=== PATIENT | female | born 1965 | race Caucasian/White ===

== ENCOUNTER → 2018-11-17 13:14 | Outpatient (CLI) | payer OTHER, SELFPAY ==
--- NOTE | 2018-11-17 13:17 | BI_ITS ---
MAMMOGRAPHY - BILATERAL SCREENING REASON FOR EXAM: Female, 53 years old. Routine annual screening examination. PERTINENT HISTORY: FAM HX -2 MAT AUNTS AGES 64 AND 70S, 1 PT AUNT AGE 70S NO SX TECHNIQUE: Digital bilateral breast jennie (3D mammographic acquisition) in the CC and MLO projections. 2-D mediolateral oblique (MLO) and craniocaudad (CC) views of both breasts were obtained. CAD: Full Field Digital Mammography with Computer Added Detection was performed. COMPARISON: None. FINDINGS: Breast Composition: There are scattered areas of fibroglandular density. There are no dominant masses or suspicious calcifications. No other significant abnormalities are identified. BI/SCREENING MAMM (CAD), BILAT IMPRESSION: Stable bilateral screening mammogram. Yearly follow-up mammogram recommended. (A) ASSESSMENT CATEGORY: BIRADS Category 2: Benign. A letter regarding these results will be sent to the patient by the facility within 30 days. Approximately 10% of breast cancers are not detected by mammography. A normal mammogram should not delay biopsy of a clinically suspicious abnormality. [id number] Electronically Signed: Khang Gray, at 13:18 EDT Tel , Service support ,
== END ==
PROVIDERS: Family Provider Family Medicine; PCP Family Medicine; Visit Provider Obstetrics & Gynecology
DX: Z12.31 Encounter for screening mammogram for malignant neoplasm of breast (principal)
CPT/HCPCS: 77063; 77067

== ENCOUNTER → 2019-11-04 16:02 | Outpatient (CLI) | payer OTHER, SELFPAY ==
[2019-02-01 08:52] VITALS: BMI 28.3
[2019-11-04 17:57] LABS: Hematocrit 43.7 % (37-47); Hemoglobin 14.5 g/dL (12.0-15.0); Mean Corp Hgb Conc 33.2 g/dL (32-36); Mean Corpuscular Hgb 29.1 pg (27.0-32.0); Mean Corpuscular Volume 87.6 fL (81-99); Mean Platelet Vol. 9.4 fl (6.2-12.0); Platelet Count 330 K/mm3 (150-450); RBC Distribution Width CV 11.9 % (11.6-14.6); RBC Distribution Width SD 38.2 fl (35.1-43.9); Red Blood Count 4.99 M/mm3 (4.2-5.4); White Blood Count 8.3 K/mm3 (4.4-11.0)
[2019-11-04 18:11] LABS: ALB/GLOB Ratio 0.9 RATIO (0.9-2.4); AST(SGOT) 19 U/L (15-37); Alanine Aminotransfer ALT/SGPT 32 U/L (13-56); Albumin, Serum 3.6 g/dL (3.2-5.0); Alkaline Phosphatase 77 U/L (45-117); Anion Gap 5 (5-15); BUN 14 mg/dL (7-18); Calcium,Total 9.1 mg/dL (8.5-10.1); Chloride 104 mmol/L (98-107); Creatinine, Serum 0.82 mg/dL (0.55-1.02); EST Glomerular Filtration Rate 77 mL/min (>60); Est Glom Filt Rate - Afr Amer 93 mL/min (>60); Globulin 4.1 g/dL (2.2-4.2); Glucose 94 mg/dL (74-106); Potassium 3.4 mmol/L (3.5-5.1); Protein, Total 7.7 g/dL (6.4-8.2); Sodium Level 139 mmol/L (136-145)
== END ==
PROVIDERS: PCP Family Medicine; Referring Provider Nurse Practitioner Family; Visit Provider Nurse Practitioner Family
DX: R10.9 Unspecified abdominal pain (principal)
CPT/HCPCS: 36415; 80053; 85027

== ENCOUNTER → 2019-12-03 06:26 | Outpatient (CLI) | payer OTHER, SELFPAY ==
[2019-11-12 13:42] VITALS: BMI 28.3
[2019-12-03 08:08] LABS: Anion Gap 8 (5-15); BUN 15 mg/dL (7-18); Calcium,Total 8.4 mg/dL (8.5-10.1); Chloride 100 mmol/L (98-107); Creatinine, Serum 0.83 mg/dL (0.55-1.02); EST Glomerular Filtration Rate 76 mL/min (>60); Est Glom Filt Rate - Afr Amer 92 mL/min (>60); Glucose 124 mg/dL (74-106); Potassium 3.2 mmol/L (3.5-5.1); Sodium Level 137 mmol/L (136-145)
== END ==
PROVIDERS: PCP Family Medicine; Referring Provider Family Medicine; Visit Provider Family Medicine
DX: E87.6 Hypokalemia (principal)
CPT/HCPCS: 36415; 80048

== ENCOUNTER 2020-01-26 06:28 | Day surgery (SDC) | payer OTHER, SELFPAY ==
[2019-11-12 13:42] VITALS: BMI 28.3
[2020-01-26 06:54] VITALS: BP 125/62; PULSE 70; RESP 16; TEMP 37; O2SAT 97; BMI 30.9
[2020-01-26] MEDS: Lactated Ringers 1,000 ML 100 ML IV (07:05)
--- NOTE | 2020-01-26 07:33 | HP.PCM_ITS ---
History and Physical Date of Admission: 01/26/20 [facility] 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[employer] Required: No Is patient in pain?: No Allergies No Known Allergies Allergy (Verified 11/12/19 13:41) Medications amlodipine 10 mg tablet 10 mg PO DAILY 11/12/19 [History Confirmed 11/12/19] hydrochlorothiazide 25 mg tablet 25 mg PO DAILY 11/12/19 [History Confirmed 11/12/19] metoprolol tartrate 50 mg tablet 50 mg PO DAILY 11/12/19 [History Confirmed 11/12/19] [facility], [facility] Medical History HTN (hypertension) (Chronic) Radiculopathy of lumbosacral region (Acute) Segmental and somatic dysfunction of pelvic region (Acute) Segmental and somatic dysfunction of lumbar region (Acute) Segmental and somatic dysfunction of thoracic region (Acute) Segmental and somatic dysfunction of cervical region (Acute) Surgical History S/P D&C (status post dilation and curettage) (Acute) S/P hysterectomy (Acute) Family History Father Hypertension CAD (coronary artery disease) CVA (cerebral vascular accident) Sister Hypertension Mother Hypertension Social History (Updated 11/20/19 @ 13:[address] Donte Hayes MD) Smoking Status: Never smoker alcohol intake: never HPI HPI HPI: JUNE ZUÑIGA, is a 54 F who presents to the office today for HPI HPI Surgical H&P: Yes HPI: JUNE ZUÑIGA, is a 54 F who presents to the office today for Presents for screening colonoscopy. Patient has never had a colonoscopy she has no family history of colon related issues. She did states she had about a 3-week history of some constipation and little change in her bowel habits but that resolved on its own. She has not noticed any blood in her stools Exam Const General: no acute distress, well developed, well hydrated Orientation: oriented to person, oriented to place, oriented to time [place] Head: normocephalic, atraumatic Ears: external ears normal Mouth: moist mucous membranes Eyes Sclera: sclerae normal Pupils: normal by confrontation Neck Neck: no lymphadenopathy noted Neck mass: No Thyroid: thyroid normal, symmetrical Chest Chest palpation & inspection: normal inspection of the chest Resp Effort & Inspection: normal respiratory effort Auscultation: clear to auscultation bilaterally Percussion: percussion normal Cardio Rate: regular rate Rhythm: regular rhythm GI Palpation: soft, no hepatosplenomegaly, no masses, nontender Rectal Exam: other Other: Rectal exam deferred. Extrem General: normal to inspection, no clubbing, cyanosis or edema Assessment & Plan Problems 1. Encounter for screening colonoscopy Z08.11 Plan I have discussed the above with the patient. I have offered the patient colonoscopy for evaluation. I have explained the risks/benefits of the procedure and described the procedure. I have discussed the risks with the patient, including but not limited to: infection, bleeding, perforation of the GI tract requiring emergency surgery, inability to complete the procedure, injury to any internal organs, complications of anesthesia, etc. - the patient understands and agrees to proceed. I have answered all the patient's questions to the patient's satisfaction and the patient has no further questions. The patient has been given instructions for the colon cleansing preparation. Orders Orders: Colonoscopy 11/12/19 Plan Detail Goals Decrease pain and improve ROM Decrease radiculopathy Barriers Lumbar compression fx-healed Transitional vertebra Coding Level of Care Code Off vis,new,level 3 Diagnoses Encounter for screening colonoscopy Z08.11 <Electronically signed by Donte Hayes MD> Date _ Donte De Santiago Signature: Date (if applicable) CC: [employer] SUPERVISOR-Everardo [place]; Mateo Multani MD ~ I have re-examined the patient. There are no clinical changes since date of exam.
--- NOTE | 2020-01-26 07:53 | OP.COLON_ITS ---
Patient Name: Diana Fernández Procedure Date: 01/26/2020 7:14 AM Date of : 1965 Age: 54 Procedure: Colonoscopy Indications: Screening for colorectal malignant neoplasm Providers: Donte Hayes MD Referring MD: Donte Hayes MD Medicines: See the Anesthesia note for documentation of the administered medications Patient Profile: This is a 54 year old female. Refer to note in patient chart for documentation of history and physical. Last Colonoscopy: none. The patient's first colonoscopy is today. Complications: No immediate complications. Procedure: Pre-Anesthesia Assessment: - Prior to the procedure, a History and Physical was performed, and patient medications and allergies were reviewed. The patient's tolerance of previous anesthesia was also reviewed. The risks and benefits of the procedure and the sedation options and risks were discussed with the patient. All questions were answered, and informed consent was obtained. Prior Anticoagulants: The patient has taken no previous anticoagulant or antiplatelet agents. ASA Grade Assessment: II - A patient with mild systemic disease. After reviewing the risks and benefits, the patient was deemed in satisfactory condition to undergo the procedure. After I obtained informed consent, the scope was passed under direct vision. Throughout the procedure, the patient's blood pressure, pulse, and oxygen saturations were monitored continuously. The adult colonoscope was introduced through the anus and advanced to the cecum, identified by appendiceal orifice and ileocecal valve. The colonoscopy was performed without difficulty. The patient tolerated the procedure well. The quality of the bowel preparation was good. Scope In: 7:40:13 AM Scope Withdrawal Time 0 hours 6 minutes 45 seconds Scope Out: 7:49:15 AM Total Procedure Duration Time 0 hours 9 minutes 2 seconds Findings: A few small-mouthed diverticula were found in the sigmoid colon. Non-bleeding internal hemorrhoids were found during retroflexion. The hemorrhoids were mild and small. The exam was otherwise without abnormality. Impression: - Diverticulosis in the sigmoid colon. - Non-bleeding internal hemorrhoids. - The examination was otherwise normal. - No specimens collected. Recommendation: - Discharge patient to home. - Resume previous diet. - Continue present medications. - Repeat colonoscopy in 10 years for screening purposes. - Return to primary care physician (date not yet determined). Procedure Code(s): --- Professional --- 49439, Colonoscopy, flexible; diagnostic, including collection of specimen(s) by brushing or washing, when performed (separate procedure) Diagnosis Code(s): --- Professional --- Z12.11, Encounter for screening for malignant neoplasm of colon K64.8, Other hemorrhoids K57.30, Diverticulosis of large intestine without perforation or abscess without bleeding CPT copyright 2017 [employer]. All rights reserved. The codes documented in this report are preliminary and upon comedian review may be revised to meet current compliance requirements. MD Donte Cummings MD 01/26/2020 7:52:37 AM This report has been signed electronically. Number of Addenda: 0 Note Initiated On: 01/26/2020 7:14 AM
--- NOTE | 2020-01-26 07:53 | OP.CCLET_ITS ---
01/26/2020 Mateo De La Cruz Md Re : Colonoscopy procedure for Diana Fernández Dear Dorothy This procedure was performed on Sunday, January 26, 2020. My impressions and recommendations are as follows: Impressions : - Diverticulosis in the sigmoid colon. - Non-bleeding internal hemorrhoids. - The examination was otherwise normal. - No specimens collected. Recommendations : - Discharge patient to home. - Resume previous diet. - Continue present medications. - Repeat colonoscopy in 10 years for screening purposes. - Return to primary care physician (date not yet determined). My findings are described in the full procedure note, which is enclosed. If I can be of further assistance, please feel free to contact me at Doctor phone number(s): , Fax: [phone], Work: . Sincerely, MD Donte Cummings MD 01/26/2020 7:52:37 AM This report has been signed electronically.
[2020-01-26 07:54] VITALS: BP 102/58; BP 125/62; PULSE 67; RESP 14; TEMP 36.4; O2SAT 100
[2020-01-26 07:55] VITALS: BP 109/63; BP 125/62; PULSE 68; RESP 16; O2SAT 99
[2020-01-26 08:00] VITALS: BP 125/62; BP 132/92; PULSE 72; RESP 16; O2SAT 96
[2020-01-26 08:05] VITALS: BP 110/57; BP 125/62; PULSE 72; RESP 16; TEMP 36.2; O2SAT 97
[2020-01-26 08:45] VITALS: BP 125/62
== END 2020-01-26 08:45 | disposition home or self-care (01) ==
LOC: EN 06:29 → AC 06:30
PROVIDERS: PCP Family Medicine; Referring Provider Surgery; Visit Provider Surgery
PROC: 0DJD8ZZ Inspection of Lower Intestinal Tract, Via Natural or Artificial Opening Endoscopic (ICD-10-PCS; CPT 45378; principal; 2020-01-26 07:25)
DX: Z12.11 Encounter for screening for malignant neoplasm of colon (principal); I10 Essential (primary) hypertension; K64.8 Other hemorrhoids; K57.30 Diverticulosis of large intestine without perforation or abscess without bleeding; Z11.59 Encounter for screening for other viral diseases
CPT/HCPCS: 45378; 87635; G2023; J7120; J1610; U0004

== ENCOUNTER → 2021-02-23 07:36 | Outpatient (CLI) | payer OTHER, SELFPAY ==
--- NOTE | 2021-02-23 07:39 | BI_ITS ---
MAMMOGRAPHY - BILATERAL SCREENING 3-D TOMOSYNTHESIS REASON FOR EXAM: Female, 55 years old. SCREENING PERTINENT HISTORY: No significant family history. TECHNIQUE: 2-D mammograms and 3-D Tomosynthesis of the breast (s) were performed. CAD was performed. COMPARISON: 11/17/2018 FINDINGS: The breast composition is of scattered fibroglandular tissue No dense spiculated masses or suspicious microcalcifications are identified. No architectural distortion is identified. There is no skin thickening or nipple retraction. Benign appearing lymph nodes noted in the axillary areas. There has been no significant change since the prior study of 11/17/2018. BI/SCRN MAMM (CAD)W/HOOD BILAT IMPRESSION: No mammographic signs of malignancy. Routine yearly mammograms recommended. ASSESSMENT CATEGORY: BIRADS Category 1: Negative. A letter regarding these results will be sent to the patient by the facility within 30 days. FOLLOW UP RECOMMENDATION: Yearly follow up mammogram recommended. (A) Approximately 10% of breast cancers are not detected by mammography. A normal mammogram should not delay biopsy of a clinically suspicious abnormality. Electronically Signed: Terrie Bryant, at 14:01 EDT Tel , Service support ,
== END ==
PROVIDERS: PCP Family Medicine; Referring Provider Family Medicine; Visit Provider Family Medicine
DX: Z12.31 Encounter for screening mammogram for malignant neoplasm of breast (principal)
CPT/HCPCS: 77063; 77067

== ENCOUNTER → 2022-04-12 | Outpatient (CLI) | payer OTHER, SELFPAY ==
--- NOTE | 2022-04-12 07:15 | BI_ITS ---
MAMMOGRAPHY - BILATERAL SCREENING REASON FOR EXAM: Female, 57 years old. Routine annual screening examination. PERTINENT HISTORY: 3 aunts with breast cancer. TECHNIQUE: Digital bilateral breast hood (3D mammographic acquisition) in the CC and MLO projections. 2-D mediolateral oblique (MLO) and craniocaudad (CC) views of both breasts were obtained. CAD: Full Field Digital Mammography with Computer Added Detection was performed. COMPARISON: Screening mammogram from 02/23/2021, 11/17/2018, 04/21/2017. FINDINGS: Breast Composition: The breasts are heterogeneously dense, which may obscure small masses. There are no dominant masses or suspicious calcifications. No other significant abnormalities are identified. There has been no significant change since the prior study. BI/SCRN MAMM (CAD)W/HOOD BILAT IMPRESSION: Stable bilateral screening mammogram. Yearly follow-up mammogram recommended. (A) ASSESSMENT CATEGORY: BIRADS Category 1: Negative. A letter regarding these results will be sent to the patient by the facility within 30 days. Approximately 10% of breast cancers are not detected by mammography. A normal mammogram should not delay biopsy of a clinically suspicious abnormality. Electronically Signed: Zafar Saba, at 9:40 EDT ,
== END | disposition home or self-care (01) ==
LOC: OPBI 07:14
PROVIDERS: PCP Family Medicine; Referring Provider Family Medicine; Visit Provider Family Medicine
DX: Z12.31 Encounter for screening mammogram for malignant neoplasm of breast (principal)
CPT/HCPCS: 77063; 77067

== ENCOUNTER → 2022-06-13 | Outpatient (CLI) | payer OTHER, SELFPAY ==
[2022-06-13 08:25] LABS: Thyroid Stim Hormone (TSH) 5.79 uIU/mL (0.358-3.74)
== END | disposition home or self-care (01) ==
PROVIDERS: PCP Family Medicine; Referring Provider Family Medicine; Visit Provider Family Medicine
DX: R23.2 Flushing (principal)
CPT/HCPCS: 36415; 84443

== ENCOUNTER → 2022-06-21 | Outpatient (CLI) | payer OTHER, SELFPAY ==
[2022-06-21 18:46] LABS: Free T3 3.3 pg/mL (2.18-3.98); T4 Free Direct 1.21 ng/dL (0.76-1.46); Uric Acid 5.9 mg/dL (2.6-6.0)
[2022-06-29 09:47] LABS: Estrogen, Total, Serum 66 pg/mL (40-244)
== END | disposition home or self-care (01) ==
LOC: MFPLAB 16:13
PROVIDERS: PCP Family Medicine; Referring Provider Family Medicine; Visit Provider Family Medicine
DX: M10.9 Gout, unspecified (principal); R23.2 Flushing; E03.9 Hypothyroidism, unspecified
CPT/HCPCS: 36415; 82672; 84439; 84443; 84481; 84550

== ENCOUNTER → 2023-02-07 | Outpatient (CLI) | payer OTHER, SELFPAY ==
--- NOTE | 2023-02-07 09:28 | RAD_ITS ---
INDICATION: THUMB PAIN EXAMINATION/TECHNIQUE: X-RAY - RIGHT XR Hand Min 3 Views 3 VIEWS COMPARISON: FINDINGS: BONES: No fracture demonstrated. Mild degenerative changes at the first carpometacarpal joint. JOINTS: No dislocation. SOFT TISSUES: Unremarkable. RAD/Hand Min 3 Views IMPRESSION: Degenerative changes at the first carpometacarpal joint. No evidence of fracture. Electronically Signed: Renetta Andrews MD at 7:17 EDT ,
--- NOTE | 2023-02-07 09:28 | RAD_ITS ---
INDICATION: THUMB PAIN EXAMINATION/TECHNIQUE: X-RAY - LEFT XR Hand Min 3 Views 3 VIEWS COMPARISON: FINDINGS: BONES: No fracture demonstrated. Mild degenerative changes at the first carpometacarpal joint. JOINTS: No dislocation. SOFT TISSUES: Unremarkable. RAD/Hand Min 3 Views IMPRESSION: Degenerative changes at the first metacarpophalangeal joint. No evidence of fracture. Electronically Signed: Renetta Andrews MD at 7:16 EDT ,
[2023-02-07 11:38] LABS: Hemoglobin A1c 5.3 % (3.8-5.6)
[2023-02-07 11:49] LABS: Free T3 2.8 pg/mL (2.18-3.98); Thyroid Stim Hormone (TSH) 2.05 uIU/mL (0.358-3.74)
== END | disposition home or self-care (01) ==
PROVIDERS: PCP Family Medicine; Referring Provider Family Medicine; Visit Provider Family Medicine
DX: E03.9 Hypothyroidism, unspecified (principal); R73.9 Hyperglycemia, unspecified; M79.645 Pain in left finger(s); M79.644 Pain in right finger(s)
CPT/HCPCS: 36415; 73130; 83036; 84443; 84481

== ENCOUNTER → 2023-05-07 | Outpatient (CLI) | payer OTHER, SELFPAY ==
--- NOTE | 2023-05-07 12:56 | BI_ITS ---
MAMMOGRAPHY - BILATERAL SCREENING REASON FOR EXAM: Female, 58 years old. Routine annual screening examination. PERTINENT HISTORY: Aunts with breast cancer. TECHNIQUE: Digital bilateral breast hood (3D mammographic acquisition) in the CC and MLO projections. 2-D mediolateral oblique (MLO) and craniocaudad (CC) views of both breasts were obtained. CAD: Full Field Digital Mammography with Computer Added Detection was performed. COMPARISON: Comparison is made with prior study April 12, 2022 and February 23, 2021. FINDINGS: Breast Composition: There are scattered areas of fibroglandular density. There are no dominant masses or suspicious calcifications. Stable small benign-appearing bilateral axillary lymph nodes. No other significant abnormalities are identified. There has been no significant change since the prior study. BI/SCRN MAMM (CAD)W/HOOD BILAT IMPRESSION: Stable bilateral screening mammogram. Yearly follow-up mammogram recommended. (A) ASSESSMENT CATEGORY: BIRADS Category 2: Benign. A letter regarding these results will be sent to the patient by the facility within 30 days. Approximately 10% of breast cancers are not detected by mammography. A normal mammogram should not delay biopsy of a clinically suspicious abnormality. [id number] Electronically Signed: Augie Kraus MD at 13:55 EDT ,
== END | disposition home or self-care (01) ==
LOC: OPBI 12:55
PROVIDERS: PCP Family Medicine; Referring Provider Family Medicine; Visit Provider Family Medicine
DX: Z12.31 Encounter for screening mammogram for malignant neoplasm of breast (principal); Z80.3 Family history of malignant neoplasm of breast
CPT/HCPCS: 77063; 77067

== ENCOUNTER → 2024-06-17 | Outpatient (CLI) | payer OTHER, SELFPAY ==
--- NOTE | 2024-06-17 07:47 | BI_ITS ---
MAMMOGRAPHY - BILATERAL SCREENING 3-D TOMOSYNTHESIS REASON FOR EXAM: Female, 59 years old. screening PERTINENT HISTORY: No significant family history. TECHNIQUE: 2-D mammograms and 3-D Tomosynthesis of the breast (s) were performed. CAD was performed. COMPARISON: 05/07/2023 FINDINGS: The breast composition is composed of scattered fibroglandular density. Scattered benign calcifications are seen. No dense spiculated masses or suspicious microcalcifications are identified. No architectural distortion is identified. There is no skin thickening or retraction. There has been no significant change since the prior study. BI/SCRN MAMM (CAD)W/HOOD BILAT IMPRESSION: No mammographic signs of malignancy. Routine yearly mammograms recommended. ASSESSMENT CATEGORY: BIRADS Category 1: Negative. A letter regarding these results will be sent to the patient by the facility within 30 days. FOLLOW UP RECOMMENDATION: Yearly follow up mammogram recommended. (A) Approximately 10% of breast cancers are not detected by mammography. A normal mammogram should not delay biopsy of a clinically suspicious abnormality. Electronically Signed: Keagan Churchill MD at 13:56 EDT ,
== END | disposition home or self-care (01) ==
LOC: OPBI 07:46
PROVIDERS: PCP Family Medicine; Referring Provider Family Medicine; Visit Provider Family Medicine
DX: Z12.31 Encounter for screening mammogram for malignant neoplasm of breast (principal)
CPT/HCPCS: 77063; 77067

== ENCOUNTER 2025-01-01 07:38 | Emergency (ER) | payer OTHER, SELFPAY ==
[2025-01-01 07:39] VITALS: BP 154/79; PULSE 63; RESP 19; TEMP 36.8; O2SAT 99; BMI 34.5
--- NOTE | 2025-01-01 07:48 | US_ITS ---
PROCEDURE: GALLBLADDER 01/01/2025 REASON FOR EXAM: Right upper quadrant abdominal pain. COMPARISON: None. FINDINGS: Liver: Normal in size, diffusely echogenic suggesting fatty infiltration. The bile ducts are within normal limits. There is normal directional flow within the main portal vein. Gallbladder: Several tiny gallstones within the nondilated gallbladder. No pericholecystic fluid or gallbladder wall thickening. Negative Rodriguez sign reported by processing technologist. Common bile duct: Normal measuring 0.3 cm. Pancreas: Visualized portions are sonographically unremarkable. Other: Visualized portions of the right kidney are unremarkable. No right upper quadrant ascites. US/Gallbladder IMPRESSION: Cholelithiasis without evidence of acute cholecystitis. Reading Location: [id number]
--- NOTE | 2025-01-01 07:48 | ED.VIS.GI ---
HPI HPI - GI History of Present Illness Chief Complaint: Abd Pain Narrative Narrative: 59-year-old female past medical history of hypertension presents with her because of right upper quadrant abdominal pain, nausea, and vomiting that she has had since about 1230 this morning, approximately 7 hours ago. Past abdominal surgery does include laparoscopic-assisted vaginal hysterectomy. She states that she feels like she has had gallbladder attacks a few times over the last 2-1/2 years, the last being a year or so ago. Yesterday evening around 830 she had ice cream. She never went to sleep but around 1230 this morning, started having right upper quadrant abdominal pain associated with nausea. She vomited once and feels improved slightly. She denies any problems with bowel movements, no diarrhea, no overt fevers or rigors. No exacerbating or alleviating factors. She states she is never had a gallbladder workup in the past. Hence, she is unsure if she has gallstones or sludge in her gallbladder. [facility] Medical History (Updated 01/01/25 @ 09:03 by Ryne Girard MD) HTN (hypertension) Radiculopathy of lumbosacral region Segmental and somatic dysfunction of pelvic region Segmental and somatic dysfunction of lumbar region Segmental and somatic dysfunction of thoracic region Segmental and somatic dysfunction of cervical region Home Medications ?Medication ?Instructions ?Recorded ?Last Taken ?Type hydrochlorothiazide 25 mg tablet 25 mg PO DAILY htn 11/12/19 01/25/20 16:00 History metoprolol tartrate 50 mg tablet 50 mg PO DAILY htn 11/12/19 01/25/20 16:00 History atenolol 25 mg tablet 25 mg PO DAILY 04/24/23 Unknown History pollens extract 160 mg tablet mg PO 04/24/23 Unknown History (Relizen) Allergy/AdvReac Type Severity Reaction Status Date / Time No Known Allergies Allergy Verified 01/01/25 07:39 Family History Father Hypertension CAD (coronary artery disease) CVA (cerebral vascular accident) Sister Hypertension Mother Hypertension Surgical History S/P hysterectomy S/P D&C (status post dilation and curettage) Social History Smoking Status: Never smoker alcohol intake: never ROS ROS ED ROS Narrative Review of systems positive for right upper quadrant pain, radiating across the upper part of the abdomen. Positive nausea and vomiting. No overt fevers or chills, no problems with bowel movements. No exacerbating or alleviating factors. EXAM Physical Exam Narrative Exam Narrative: Afebrile. Vital signs noted. Nontoxic-appearing. Cardiovascular examination reveals a regular rate and rhythm. Lungs are clear to auscultation bilaterally anteriorly. The abdomen is soft with mild tenderness to palpation in the right upper quadrant. No noted Rodriguez sign, no rebound or guarding. Positive bowel sounds. Neurological examination nonfocal, nonlateralizing. Moves all extremities. Able to transfer to cot. Const Vital Signs: 01/01/25 07:39 01/01/25 09:12 Temperature 98.2 F 97.8 F Temperature Source Oral Pulse Rate 63 78 Respiratory Rate 19 H 16 Blood Pressure 154/79 H 126/78 H Blood Pressure Mean 104 94 Pulse Ox 99 99 Oxygen Delivery Method Room Air MDM MDM MDM Narrative Medical decision making narrative: The differential diagnosis includes but not limited to acute cholecystitis versus gallstone pancreatitis versus diverticulitis versus nonspecific abdominal pain versus biliary colic. History and physical does not support diverticulitis, she is not having problems with bowel movements. Her discomfort is more limited to the right upper quadrant. Patient administered morphine and Zofran for analgesia. CBC, CMP, and lipase obtained as well as gallbladder ultrasound. Repeat evaluation shows her improved after morphine and ondansetron. I reviewed her laboratory work and she has normal white count of 10.0, hemoglobin normal at 15.0, platelet count normal at 252. Neutrophil count slightly elevated but when compared to prior and has been elevated in the past. Lymphocyte count was low. I think this is nonspecific. CMP grossly unremarkable except glucose 157 with a normal anion gap of 13. LFTs show alk phos elevated at 120 but normal AST and normal ALT. Total bilirubin normal at 0.67. Lipase normal at 25 so I doubt pancreatitis. I reviewed the radiology report of the ultrasound of the gallbladder. She has a normal common bile duct and a few gallstones, but no evidence of an acute cholecystitis. At this point in time, I feel she can be discharged to follow-up with general surgery. She can follow-up with her primary care provider as well. I discussed narcotic analgesia with the patient but she declined stating she will take [id number] ibuprofen and Tylenol as needed. Return instructions to the emergency department were reviewed. Disposition is discharged home in stable condition. History & Record Review Discussion w/independent historian: Patient Lab Data Attestation: I reviewed the patient's lab results. Labs: Laboratory Results - last 24 hr 01/01/25 08:05 WBC 10.0 RBC 5.05 Hgb 15.0 Hct 43.3 MCV 85.7 MCH 29.7 MCHC 34.6 RDW Std Deviation 39.8 RDW Coeff of Jonathan 12.8 Plt Count 252 MPV 9.7 Immature Gran % (Auto) 0.700 Neut % (Auto) 81.3 H Lymph % (Auto) 11.9 L [place] % (Auto) 4.6 Eos % (Auto) 0.9 Baso % (Auto) 0.6 Absolute Neuts (auto) 8.1 H Absolute Lymphs (auto) 1.19 Nucleated RBC % 0 Sodium 139 Potassium 3.8 Chloride 101 Carbon Dioxide 24.4 Anion Gap 13 BUN 14 Creatinine 0.77 Estim Creat Clear Calc 93.59 Est GFR (MDRD) Non-Af 89 BUN/Creatinine Ratio 18.1 Glucose 157 H Calcium 9.7 Total Bilirubin 0.67 AST 25 ALT 29 Alkaline Phosphatase 120 H Total Protein 7.5 Albumin 4.4 Globulin 3.0 Albumin/Globulin Ratio 1.5 Lipase 25 Radiography Diagnostic Testing: Clinical Impression(s) from Imaging Studies Gallbladder Ultrasound 01/01/25 07:48 IMPRESSION: Cholelithiasis without evidence of acute cholecystitis. Reading Location: [facility] Discharge Plan Triage Chief Complaint: Abd Pain ED Provider: Ryne Girard Dx/Rx/DC Orders Clinical Impression: Right upper quadrant abdominal pain, Gallstones, Biliary colic Instructions: ED Gallstones with Biliary Colic, ED Pain, Acute, Uncertain Cause Prescriptions: No Action metoprolol tartrate 50 mg tablet 50 mg PO DAILY hydrochlorothiazide 25 mg tablet 25 mg PO DAILY atenolol 25 mg tablet 25 mg PO DAILY Relizen 160 mg tablet PO Primary Care Provider: Adrián Rojas Referrals: Adrián Rojas MD [Primary Care Provider] - 3-5 Days if not improving Wilbur Topete MD [Med Staff - Active Staff] - As soon as possible Activity Restrictions/Additional Instructions: Start a low-fat diet. Return to the emergency department with fever, increased pain, new or worsening symptoms. Follow-up with general surgery regarding gallstones and biliary colic. Print Language: Martiniquais Disposition Disposition: Home, Self Care Discharge Date/Time: 01/01/25 09:12
[2025-01-01] MEDS: Ondansetron 4 MG/2 ML Vial IV (08:02)
[2025-01-01] MEDS: 0.9% Normal Saline (1000mL) 1,000 ML 125 ML IV (08:02)
[2025-01-01] MEDS: Morphine 4 MG/ML Syringe IV (08:02)
[2025-01-01 08:13] LABS: Absolute Lymphocyte Count 1.19 X10^3/uL (0.83-4.51); Absolute Neutrophil Count 8.1 X10^3/uL (2.0-7.7); Basophil# 0.06 X10^3/uL; Basophil% 0.6 % (0-1); Eosinophil# 0.09 X10^3/uL; Eosinophils% 0.9 % (0-5); Hematocrit 43.3 % (37-47); Lymphocyte # 1.19 X10^3/ul (0.83-4.51); Lymphocyte % 11.9 % (19-41); Mean Corp Hgb Conc 34.6 g/dL (32-36); Mean Corpuscular Hgb 29.7 pg (27.0-32.0); Mean Corpuscular Volume 85.7 fL (81-99); Mean Platelet Vol. 9.7 fl (6.2-12.0); Monocyte# 0.46 X10^3/uL; Monocyte% 4.6 % (0-10); NRBC Flagged by Analyzer 0 % (0-5); Neutrophil # 8.09 X10^3/uL (2.7-7.7); Neutrophil % 81.3 % (47-70); Platelet Count 252 K/mm3 (150-450); RBC Distribution Width CV 12.8 % (11.6-14.6); RBC Distribution Width SD 39.8 fl (35.1-43.9); Red Blood Count 5.05 M/mm3 (4.2-5.4)
[2025-01-01 08:33] LABS: ALB/GLOB Ratio 1.5 RATIO (0.9-2.4); AST(SGOT) 25 U/L (<=31); Alanine Aminotransfer ALT/SGPT 29 U/L (<=34); Albumin, Serum 4.4 g/dL (3.5-5.0); Alkaline Phosphatase 120 U/L (35-104); Anion Gap 13 (5-15); BUN 14 mg/dL (4-19); BUN/Creat Ratio 18.1 RATIO (10-20); Calcium,Total 9.7 mg/dL (7.6-11.0); Carbon Dioxide 24.4 mmol/L (21.0-32.0); Chloride 101 mmol/L (98-108); Creatinine, Serum 0.77 mg/dL (0.70-1.20); EST Glomerular Filtration Rate 89 (>60); Estimated Creatinine Clearance 93.59 ml/min (50-250); Glucose 157 mg/dL (70-99); Lipase 25 U/L (13-75); Potassium 3.8 mmol/L (3.3-5.1); Protein, Total 7.5 g/dL (5.9-8.4); Sodium Level 139 mmol/L (133-145); Total Bilirubin 0.67 mg/dL (0.00-1.30)
[2025-01-01 09:12] VITALS: BP 126/78; PULSE 78; RESP 16; TEMP 36.6; O2SAT 99
== END 2025-01-01 09:12 | disposition home or self-care (01) ==
PROVIDERS: Emergency Provider Emergency Medicine; PCP Family Medicine; Visit Provider Emergency Medicine
DX: R10.11 Right upper quadrant pain (principal); K80.70 Calculus of gallbladder and bile duct without cholecystitis without obstruction; I10 Essential (primary) hypertension
CPT/HCPCS: 76705; 80053; 83690; 85025; 96361; 96374; 96375; 99283; J2405

== ENCOUNTER → 2025-08-02 | Outpatient (CLI) | payer OTHER, SELFPAY ==
--- NOTE | 2025-08-02 14:25 | BD_ITS ---
PROCEDURE: DEXA BONE DENSITY STUDY 08/02/2025 REASON FOR EXAM: F, age 60 y/o . Postmenopausal. TECHNIQUE: Procedure Code: BDDBD Modality: DX Procedure: DEXA BONE DENSITY STUDY COMPARISON: None FINDINGS: BMD and T-SCORES Lumbar spine: 1.274 g/cm2, T-score 2.3 Levels: L1 through L4 Left femoral neck: 0.949 g/cm2, T-score 0.9 Femoral neck comparison data not recommended for monitoring change. Left total hip: 1.126 g/cm2, T-score 1.5 Right femoral neck: 0.927 g/cm2, T-score 0.7 Femoral neck comparison data not recommended for monitoring change. Right total hip: 1.122 g/cm2, T-score 1.4 The World Health Organization has defined the following categories based on bone density: Normal bone density: T-score equal to or greater than -1.0 Osteopenia: T-score between -1.0 and -2.5 Osteoporosis: T-score equal to or less than -2.5 FRAX (or Comparable) Fracture Risk Assessment: 10 Year Probability of Fracture: Major Osteoporotic Fracture: 9.0% Hip Fracture: 0.1% (Note: FRAX is not to be reported in setting of normal range bone density, osteoporosis on DEXA, known history of osteoporosis, prior osteoporotic hip or vertebral fracture, or for any patient undergoing pharmacological treatment for bone loss.) The National Osteoporosis Foundation (NOF) recommends pharmacological treatment for patients with a FRAX 10-year risk of 3% or higher for a hip fracture, or 20% or higher for a major osteoporotic fracture, to prevent osteoporosis and reduce fracture risk. The patient does not meet the pharmacological treatment recommendations for prevention of osteoporosis. BD/Dexa Bone Density Study IMPRESSION: NORMAL T-SCORES. Recommend follow-up as clinically warranted. Reading Location: [facility]
--- NOTE | 2025-08-02 15:00 | BI_ITS ---
EXAM: SCRN MAMM (CAD)W/HOOD BILAT DATE: 08/02/2025 CLINICAL HISTORY: F, Age 60 y/o , ANNUAL EXAM No family history. TECHNIQUE: Procedure Code: [id number] Modality: MG Procedure: SCRN MAMM (CAD)W/HOOD BILAT COMPARISON: Prior exam(s) dated prior study dated June 17, 2024.. FINDINGS: TISSUE DENSITY: There are scattered areas of fibroglandular density. Bilateral Breast Mammographic Findings: No significant masses, calcifications or other abnormalities are identified. No suspicious masses, areas of developing architectural distortion, or suspicious calcifications. There has been no significant interval change. BI/SCRN MAMM (CAD)W/HOOD BILAT IMPRESSION: Stable bilateral screening mammogram. OVERALL FINAL ASSESSMENT BI-RADS 1: NEGATIVE. RECOMMENDATION: Routine annual follow-up in 1 Year Additional Recommendation none A letter with findings and recommendations will be mailed to the patient. Reading Location: [facility]
--- OUTSIDE RECORDS SUMMARY | 2025-08-02 17:19 | XMS RPT_ITS | CCD ---
Author Organization [facility] Inform ion [facility] Care Team Providers Care Cable Spooler Name Role Phone Dimassi Jillian HDZ Unavailable Dr. Adrián Rojas Primary Care Provider Dr. Adrián Rojas Referring Provider [phone] BRIGIDO Pang Attending Provider Adrián Rojas Primary Care Unavailable Ryne Girard Attending Unavailable Assessment, Health Risk Referring Unavaila ble Assessment, Health Risk Attending Unavaila ble dArián Rojas Primary Care Unavailable Assessment, Health Risk Referring Unavaila ble Assessment, Health Risk Attending UnavailAdrián Henao Primary Care Unavailable Adrián Rojas Referring Unavailable Adrián Rojas Attending Unavailable Adrián Rojas Primary Care Unavailable Medications Current Medications Medication Drug Class(es) Dates Sig (Normalized) Sig (Original) atenolol 25 mg oral tablet (1 source) beta-Adrenerg ic Jonnathan Start: 3 take 25 mg by mouth once daily Atenolol Active 25 MG PO DAILY April 24, 2023 12:00am hydroCHLOROthiazide 25 mg oral tablet (3 sources) Thiazide Diuretic Start: 0 take 25 mg by mouth once daily Hydrochlorothiazide Active 25 MG PO DAILY November 12, 2019 12:00am metoprolol tartrate 50 mg oral tablet (3 sources) beta-Adrenerg ic Jonnathan Start: 0 take 50 mg by mouth once daily Metoprolol Tartrate Active 50 MG PO DAILY November 12, 2019 12:00am Pollens Extract (Relizen) 160 mg tablet (1 source) Start: 3 Pollens Extract (Relizen) 160 mg tablet Active MG PO April 24, 2023 12:00am Completed/Discontinued Medications Medication Drug Class(es) Dates Sig (Normalized) Sig (Original) amLODIPine 10 mg oral tablet (3 sources) Dihydropyridine Calcium Channel Jonnathan Start: 11-12-2019 End: 04-24-2023 take 10 mg by mouth once daily Amlodipine Discontinued 10 MG PO DAILY November 12, 2019 12:00am April 24, 2023 8:09am amLODIPine 10 mg / benazepril hydrochloride 20 mg oral capsule (6 sources) Dihydropyridine Calcium Channel Jonnathan, Angiotensin Converting Enzyme Inhibitor Start: 01-21-2017 AMLODIPINE BESY-BENAZEPRIL HCL 10-20 MG CAPS daily AMLODIPINE BESY-BENAZEPRIL HCL [id number] Lorie Arthur GLUCOSAMINE-CHONDRO ITIN (6 sources) Start: 01-21-2017 COSAMIN DS 500-400 MG CAPS daily GLUCOSAMINE-CHOND ROITIN [id number] Lorie Arthur Start: 01-21-2017 COSAMIN DS 500 -400 MG CAPS daily GLUCOSAMINE-CHONDROITIN [id number] Lorie Arthur polymyxin b 19871 unt/ml / trimethoprim 1 mg/ml ophthalmic solution (1 source) Dihydrofolate Reductase Inhibitor Antibacterial, Polymyxin-class Antibacterial Start: 04-24-2023 End: 05-01-2023 Polymyxin B Sulf-Trimethoprim (Polytrim) 10,000 unit- 1 mg/mL drops Discontinued 1 DRP OPHTHALMIC Q3H 10 7 April 24, 2023 12:00am May 01, 2023 12:04am while awake; do not exceed 6 doses in 24 hours Problems Active Problems Problem Classification Problem Date Documented Da te Episodic/Chronic Abdominal pain (1 source) Unspecified abdominal pain; Translations: [Unspecified abdominal pain] Onset: 01-05-2025 Episodic Essential hypertension (9 sources) Hypertensive disorder; Translations: [Essential (primary) hypertension] Onset: 01-21-2017 01-21-2017 Chronic Inflammation; infection of eye (except that caused by tuberculosis or sexually transmitteddisease) (2 sources) Acute infectious conjunctivitis; Translations: [Unspecified acute conjunctivitis, unspecified eye] 04-24-2023 Episodic Other bone disease and musculoskeletal deformities (20 sources) Segmental and somatic dysfunction; Translations: [Segmental and somatic dysfunction of cervical region] Onset: 01-21-2017 01-22-2017 Episodic Spondylosis; intervertebral disc disorders; other back problems (3 sources) Lumbosacral radiculopathy; Translations: [Radiculopathy, lumbosacral region] 11-12-2019 Episodic Past or Other Problems Problem Classification Problem Date Documented Da te Episodic/Chronic Other screening for suspected conditions (not mental disorders or infectious disease) (1 source) Encounter for screening mammogram for malignant neoplasm of breast; Translations: [Encounter for screening mammogram for malignant neoplasm of breast] Onset: 07-09-2024 Episodic Results Test Name Value Interpretation Reference Range Facility CBC W/Diff, Automatedon 05 Absolute Lymph 1.19 X10 3/uL Normal 0.83-4.51 [facility] Comment on above: Performed By: #### L 501.2450, L100.0100, L500.4050 #### [facility] [address] [place], [address] Absolute Neut 8.1 X10 3/uL High 2.0-7.7 [facility] Comment on above: Performed By: #### L 501.2450, L100.0100, L500.4050 #### [facility] [address] [place], [address] Basophils/100 WBC (Bld) 0.6 % Normal 0-1 [facility] Comment on above: Performed By: #### L 501.2450, L100.0100, L500.4050 #### [facility] [address] [place], [address] Eosinophils/100 WBC (Bld) 0.9 % Normal 0-5 [facility] Comment on above: Performed By: #### L 501.2450, L100.0100, [id number] #### [facility] [address] [place], [address] Erythrocyte distribution width (RBC) [Ratio] 12.8 % Normal 11.6-14.6 [facility] Comment on above: Performed By: #### L 501.2450, L100.0100, L500.4050 #### [facility] [address] [place], [address] Hematocrit (Bld) [Volume fraction] 43.3 % Normal 37-47 [facility] Comment on above: Performed By: #### L 501.2450, L100.0100, L500.4050 #### [facility] [address] [place], [address] Hemoglobin (Bld) [Mass/Vol] 15.0 g/dL Normal 12.0-15.0 [facility] Comment on above: Performed By: #### L 501.2450, L100.0100, L500.4050 #### [facility] [address] [place], [address] IG% 0.700 Normal 0.0-0.9 [facility] Comment on above: Result Comment: IG% - Immature Granulocytes (promyelocytes, myelocytes and metamyelocytes) > 1% indicates that a LEFT SHIFT is Present. Performed By: #### L 501.2450, L100.0100, L500.4050 #### [facility] [address] [place], [address] Lymphocytes/100 WBC (Bld) 11.9 % Low 19-41 [facility] Comment on above: Performed By: #### L 501.2450, L100.0100, L500.4050 #### [facility] [address] [place], [address] MCH (RBC) [Entitic mass] 29.7 pg Normal 27.0-32.0 [facility] Comment on above: Performed By: #### L 501.2450, L100.0100, L500.4050 #### [facility] [address] [place], [address] MCHC (RBC) [Mass/Vol] 34.6 g/dL Normal 32-36 [facility] Comment on above: Performed By: #### L 501.2450, L100.0100, L500.4050 #### [facility] [address] [place], [address] MCV (RBC) [Entitic vol] 85.7 fL Normal 81-99 [facility] Comment on above: Performed By: #### L 501.2450, L100.0100, L500.4050 #### [facility] [address] [place], [address] Monocytes/100 WBC (Bld) 4.6 % Normal 0-10 [facility] Comment on above: Performed By: #### L 501.2450, L100.0100, L500.4050 #### [facility] [address] [place], [address] Neutrophils/100 WBC (Bld) 81.3 % High 47-70 [facility] Comment on above: Performed By: #### L 501.2450, L100.0100, L500.4050 #### [facility] [address] [place], [address] Nucleated RBC (Bld) [#/Vol] 0 10*3/uL Normal 0-5 [facility] Comment on above: Performed By: #### L 501.2450, L100.0100, L500.4050 #### [facility] [address] [place], [address] Platelet mean volume (Bld) [Entitic vol] 9.7 fL Normal 6.2-12.0 [facility] Comment on above: Performed By: #### L 501.2450, L100.0100, L500.4050 #### [facility] [address] [place], [address] Platelets (Bld) [#/Vol] 252 10*3/uL Normal 150-450 [facility] Comment on above: Performed By: #### L 501.2450, L100.0100, L500.4050 #### [facility] [address] [place], [address] RBC (Bld) [#/Vol] 5.05 10*6/uL Normal 4.2-5.4 [facility] Comment on above: Performed By: #### L 501.2450, L100.0100, L500.4050 #### [facility] [address] [place], [address] RDW SD 39.8 fl Normal 35.1-43.9 [facility] Comment on above: Performed By: #### L 501.2450, L100.0100, L500.4050 #### [facility] [address] [place], [address] WBC (Bld) [#/Vol] 10.0 10*3/uL Normal 4.4-11.0 [facility] Comment on above: Performed By: #### L 501.2450, L100.0100, L500.4050 #### [facility] [address] [place], [address] Comprehensive Metabolic Prof ilon 01-01-2025 Albumin [Mass/Vol] 4.4 g/dL Normal 3.5-5.0 [facility] Comment on above: Performed By: #### L 501.2450, L100.0100, L500.4050 #### [facility] [address] [place], [address] Albumin/Globulin [Mass ratio] 1.5 {ratio} Normal 0.9-2.4 [facility] Comment on above: Performed By: #### L 501.2450, L100.0100, L500.4050 #### [facility] [address] [place], [address] ALK PHOS 120 U/L High 35-104 [facility] Comment on above: Performed By: #### L 501.2450, L100.0100, L500.4050 #### [facility] [address] [place], [address] ALT [Catalytic activity/Vol] 29 U/L Normal <=34 [facility] Comment on above: Performed By: #### L 501.2450, L100.0100, L500.4050 #### [facility] [address] [place], [address] AST [Catalytic activity/Vol] 25 U/L Normal <=31 [facility] Comment on above: Performed By: #### L 501.2450, L100.0100, L500.4050 #### [facility] [address] [place], [address] Bilirubin [Mass/Vol] 0.67 mg/dL Normal 0.00-1.30 [facility] Comment on above: Performed By: #### L 501.2450, L100.0100, L500.4050 #### [facility] [address] [place], [address] BUN/CRE 18.1 RATIO Normal 10-20 [facility] Comment on above: Performed By: #### L 501.2450, L100.0100, L500.4050 #### [facility] [address] [place], [address] Calcium [Mass/Vol] 9.7 mg/dL Normal 7.6-11.0 [facility] Comment on above: Performed By: #### L 501.2450, L100.0100, L500.4050 #### [facility] [address] [place], [address] Chloride [Moles/Vol] 101 mmol/L Normal 98-108 [facility] Comment on above: Performed By: #### L 501.2450, L100.0100, L500.4050 #### [facility] [address] [place], [address] CO2 [Moles/Vol] 24.4 mmol/L Normal 21.0-32.0 [facility] Comment on above: Performed By: #### L 501.2450, L100.0100, L500.4050 #### [facility] [address] [place], [address] Creatinine [Mass/Vol] 0.77 mg/dL Normal 0.70-1.20 [facility] Comment on above: Performed By: #### L 501.2450, L100.0100, L500.4050 #### [facility] [address] [place], [address] ECRCL 93.59 ml/min Normal 50-250 [facility] Comment on above: Performed By: #### L 501.2450, L100.0100, L500.4050 #### [facility] [address] [place], [address] GAP 13 Normal 5-15 [facility] Comment on above: Performed By: #### L 501.2450, L100.0100, L500.4050 #### [facility] [address] [place], [address] GFR/1.73 sq M.predicted among non-blacks MDRD (S/P/Bld) [Vol rate/Area] 89 mL/min/{1.73_m2} Normal >60 [facility] Comment on above: Result Comment: mL/m in/1.73m2 CKD-EPI Creatinine Equation (2020) Performed By: #### L 501.2450, L100.0100, L500.4050 #### [facility] [address] [place], [address] Globulin (S) [Mass/Vol] 3.0 g/dL Normal 2.2-4.2 [facility] Comment on above: Performed By: #### L 501.2450, L100.0100, L500.4050 #### [facility] [address] [place], [address] Glucose [Mass/Vol] 157 mg/dL High 70-99 [facility] Comment on above: Performed By: #### L 501.2450, L100.0100, L500.4050 #### [facility] [address] [place], [address] Potassium [Moles/Vol] 3.8 mmol/L Normal 3.3-5.1 [facility] Comment on above: Performed By: #### L 501.2450, L100.0100, L500.4050 #### [facility] [address] [place], [address] Sodium [Moles/Vol] 139 mmol/L Normal 133-145 [facility] Comment on above: Performed By: #### L 501.2450, L100.0100, L500.4050 #### [facility] [address] [place], [address] T PROT 7.5 g/dL Normal 5.9-8.4 [facility] Comment on above: Performed By: #### L 501.2450, L100.0100, L500.4050 #### [facility] [address] [place], [address] Urea nitrogen [Mass/Vol] 14 mg/dL Normal 4-19 [facility] Comment on above: Performed By: #### L 501.2450, L100.0100, L500.4050 #### [facility] [address] [place], [address] Emergency Department Summary on 01-01-2025 Emergency Department Summary [facility] Medical Records Department [address] [place] [address] Emergency Department Summary 01/01/25 MR#: [id number] Acct: [id number] Name: JUNE ZUÑIGA Rep #: [id number] : 1965 59 From: Ryne Giradr MD PCP: Dr. Adrián Rojas MD Status:DEP ER Location: ED HPI HPI - GI History of Present Illness Chief Complaint: Abd Pain Narrative Narrative: 59-year-old female past medical history of hypertension presents with her because of right upper quadrant abdominal pain, nausea, and vomiting that she has had since about 1230 this morning, approximately 7 hours ago. Past abdominal surgery does include laparoscopic-assisted vaginal hysterectomy. She states that she feels like she has had gallbladder attacks a few times over the last 2-1/2 years, the last being a year or so ago. Yesterday evening around 830 she had ice cream. She never went to sleep but around 1230 this morning, started having right upper quadrant abdominal pain associated with nausea. She vomited once and feels improved slightly. She denies any problems with bowel movements, no diarrhea, no overt fevers or rigors. No exacerbating or alleviating factors. She states she is never had a gallbladder workup in the past. Hence, she is unsure if she has gallstones or sludge in her gallbladder. [facility] Medical History (Updated 01/01/25 @ 09:03 by Ryne Girard MD) HTN (hypertension) Radiculopathy of lumbosacral region Segmental and somatic dysfunction of pelvic region Segmental and somatic dysfunction of lumbar region Segmental and somatic dysfunction of thoracic region Segmental and somatic dysfunction of cervical region Home Medications ???Medication ???Instructions ???Recorded ???Last Taken ???Type hydrochlorothiazide 25 mg tablet 25 mg PO DAILY htn 11/12/19 16:00 History metoprolol tartrate 50 mg tablet 50 mg PO DAILY htn 11/12/19 16:00 History atenolol 25 mg tablet 25 mg PO DAILY 04/24/23 Unknown Hi story pollens extract 160 mg tablet mg PO 04/24/23 Unknown History (Relizen) Allergy/AdvReac Type Severity Reaction Status Date / Time No Known Allergies Allergy Verified 01/01/25 07:39 Family History Father Hypertension CAD (coronary artery disease) CVA (cerebral vascular accident) Sister Hypertension Mother Hypertension Surgical History S/P hysterectomy S/P D C (status post dilation and curettage) Social History Smoking Status: Never smoker alcohol intake: never ROS ROS ED ROS Narrative Review of systems positive for right upper quadrant pain, radiating across the upper part of the abdomen. Positive nausea and vomiting. No overt fevers or chills, no problems with bowel movements. No exacerbating or alleviating factors. EXAM Physical Exam Narrative Exam Narrative: Afebrile. Vital signs noted. Nontoxic-appearing. Cardiovascular examination reveals a regular rate and rhythm. Lungs are clear to auscultation bilaterally anteriorly. The abdomen is soft with mild tenderness to palpation in the right upper quadrant. No noted Rodriguez sign, no rebound or guarding. Positive bowel sounds. Neurological examination nonfocal, nonlateralizing. Moves all extremities. Able to transfer to cot. Const Vital Signs: 01/01/25 07:39 01/01/25 09:12 Temperature 98.2 F 97.8 F Temperature Source Oral Pulse Rate 63 78 Respiratory Rate 19 H 16 Blood Pressure 154/79 H 126/78 H Blood Pressure Mean 104 94 Pulse Ox 99 99 Oxygen Delivery Method Room Air MDM MDM MDM Narrative Medical decision making narrative: The differential diagnosis includes but not limited to acute cholecystitis versus gallstone pancreatitis versus diverticulitis versus nonspecific abdominal pain versus biliary colic. History and physical does not support diverticulitis, she is not having problems with bowel movements. Her discomfort is more limited to the right upper quadrant. Patient administered morphine and Zofran for analgesia. CBC, CMP, and lipase obtained as well as gallbladder ultrasound. Repeat evaluation shows her improved after morphine and ondansetron. I reviewed her laboratory work and she has normal white count of 10.0, hemoglobin normal at 15.0, platelet count normal at 252. Neutrophil count slightly elevated but when compared to prior and has been elevated in the past. Lymphocyte count was low. I think this is nonspecific. CMP grossly unremarkable except glucose 157 with a normal anion gap of 13. LFTs show alk phos elevated at 120 but normal AST and normal ALT. Total bilirubin normal at 0.67. Lipase normal at 25 so I doubt pancreatitis. I reviewed the radiology repo (more content not included)... Normal [facility] Gallbladderon 01-01-2025 Gallbladder [facility] Imaging Services [address] [place] [address] Gallbladder MR#: [id number] Acct: [id number] Name: JUNE ZUÑIGA Rep #: [id number] : 1965 F 59 From: Gris Broges nd, MD PCP: Dr. Adrián Rojas MD Status: REG ER Study: Gallbladder Date of Exam: 01/01/25 Exam# [id number] Ordering Dr: Ryne Girard MD PROCEDURE: GALLBLADDER 01/01/2025 REASON FOR EXAM: Right upper quadrant abdominal pain. COMPARISON: None. FINDINGS: Liver: Normal in size, diffusely echogenic suggesting fatty infiltration. The bile ducts are within normal limits. There is normal directional flow within the main portal vein. Gallbladder: Several tiny gallstones within the nondilated gallbladder. No pericholecystic fluid or gallbladder wall thickening. Negative Rodriguez sign reported by wood technologist. Common bile duct: Normal measuring 0.3 cm. Pancreas: Visualized portions are sonographically unremarkable. Other: Visualized portions of the right kidney are unremarkable. No right upper quadrant ascites. US/Gallbladder IMPRESSION: Cholelithiasis without evidence of acute cholecystitis. Reading Location: [facility] CC: Dr. Ryne Girard MD; Dr. Adrián Rojas MD Insurance Adjuster: Signed Normal [facility] Lipaseon 01-01-2025 Lipase [Catalytic activity/Vol] 25 U/L Normal 13-75 [facility] Comment on above: Result Comment: Rebekah lisa note: LIPASE revised reference range effective 22. New Lipase methodology. Expected to produce lower values than the previous assay method. NEW Reference Range: 13 - 75 U/L Performed By: #### L 501.2450, L100.0100, L500.4050 #### [facility] [address] [place], [address] CBC, Employeeon 12-07-2024 Absolute Lymph 2.09 X10 3/uL Normal 0.83-4.51 [facility] Comment on above: Performed By: #### L 501.2450, L100.0100, L500.4050 #### [facility] [address] [place], [address] Absolute Neut 4.4 X10 3/uL Normal 2.0-7.7 [facility] Comment on above: Performed By: #### L 501.2450, L100.0100, L500.4050 #### [facility] [address] [place], [address] Basophils/100 WBC (Bld) 0.5 % Normal 0-1 [facility] Comment on above: Performed By: #### L 501.2450, L100.0100, L500.4050 #### [facility] [address] [place], [address] Eosinophils/100 WBC (Bld) 3.1 % Normal 0-5 [facility] Comment on above: Performed By: #### L 501.2450, L100.0100, L500.4050 #### [facility] [address] [place], [address] Erythrocyte distribution width (RBC) [Ratio] 12.6 % Normal 11.6-14.6 [facility] Comment on above: Performed By: #### L 501.2450, L100.0100, L500.4050 #### [facility] [address] [place], [address] Hematocrit (Bld) [Volume fraction] 40.9 % Normal 37-47 [facility] Comment on above: Performed By: #### L 501.2450, L100.0100, L500.4050 #### [facility] [address] [place], [address] Hemoglobin (Bld) [Mass/Vol] 14.1 g/dL Normal 12.0-15.0 [facility] Comment on above: Performed By: #### L 501.2450, L100.0100, L500.4050 #### [facility] [address] [place], [address] Lymphocytes/100 WBC (Bld) 28.3 % Normal 19-41 [facility] Comment on above: Performed By: #### L 501.2450, L100.0100, L500.4050 #### [facility] [address] [place], [address] MCH (RBC) [Entitic mass] 29.6 pg Normal 27.0-32.0 [facility] Comment on above: Performed By: #### L 501.2450, L100.0100, L500.4050 #### [facility] [address] [place], [address] MCHC (RBC) [Mass/Vol] 34.5 g/dL Normal 32-36 [facility] Comment on above: Performed By: #### L 501.2450, L100.0100, L500.4050 #### [facility] [address] [place], [address] MCV (RBC) [Entitic vol] 85.9 fL Normal 81-99 [facility] Comment on above: Performed By: #### L 501.2450, L100.0100, L500.4050 #### [facility] [address] [place], [address] Monocytes/100 WBC (Bld) 7.7 % Normal 0-10 [facility] Comment on above: Performed By: #### L 501.2450, L100.0100, L500.4050 #### [facility] [address] [place], [address] Neutrophils/100 WBC (Bld) 59.9 % Normal 47-70 [facility] Comment on above: Performed By: #### L 501.2450, L100.0100, L500.4050 #### [facility] [address] [place], [address] NRBC # 0.00 10 3/uL Normal 0-5 [facility] Comment on above: Performed By: #### L 501.2450, L100.0100, L500.4050 #### [facility] [address] [place], [address] Nucleated RBC (Bld) [#/Vol] 0 10*3/uL Normal 0-5 [facility] Comment on above: Performed By: #### L 501.2450, L100.0100, L500.4050 #### [facility] [address] [place], [address] Platelet mean volume (Bld) [Entitic vol] 9.5 fL Normal 6.2-12.0 [facility] Comment on above: Performed By: #### L 501.2450, L100.0100, L500.4050 #### [facility] [address] [place], [address] Platelets (Bld) [#/Vol] 268 10*3/uL Normal 150-450 [facility] Comment on above: Performed By: #### L 501.2450, L100.0100, L500.4050 #### [facility] [address] [place], [address] RBC (Bld) [#/Vol] 4.76 10*6/uL Normal 4.2-5.4 [facility] Comment on above: Performed By: #### L 501.2450, L100.0100, L500.4050 #### [facility] [address] [place], [address] RDW SD 39.8 fl Normal 35.1-43.9 [facility] Comment on above: Performed By: #### L 501.2450, L100.0100, L500.4050 #### [facility] [address] [place], [address] WBC (Bld) [#/Vol] 7.4 10*3/uL Normal 4.4-11.0 [facility] Comment on above: Performed By: #### L 501.2450, L100.0100, L500.4050 #### [facility] [facility] [address] [place], [address] Employee Profileon Cholesterol in LDL [Mass/Vol] 131 mg/dL High 0-130 [facility] Comment on above: Performed By: #### L 501.2450, L100.0100, L500.4050 #### [facility] [address] [place], [address] Urinalysis, Employeeon 12-07 BILIRUBIN URINE Normal Negative [facility] Comment on above: Order Comment: Urine , Random Result Comment: PT R EFUSED Performed By: #### L 500.2900, L400.0100, L100.0200 #### [facility] [address] [place], [address] Clarity (U) Normal Clear [facility] Comment on above: Order Comment: Urine , Random Result Comment: PT R EFUSED Performed By: #### L 500.2900, L400.0100, L100.0200 #### [facility] [address] [place], [address] Color (U) Normal Yellow [facility] Comment on above: Order Comment: Urine , Random Result Comment: PT R EFUSED Performed By: #### L 500.2900, L400.0100, L100.0200 #### [facility] [address] [place], [address] GLUCOSE, UR Normal Normal [facility] Comment on above: Order Comment: Urine , Random Result Comment: PT R EFUSED Performed By: #### L 500.2900, L400.0100, L100.0200 #### [facility] [address] [place], [address] KETONE UR Normal Negative [facility] Comment on above: Order Comment: Urine , Random Result Comment: PT R EFUSED Performed By: #### L 500.2900, L400.0100, L100.0200 #### [facility] [address] [place], [address] LEUK ESTERASE Normal Negative [facility] Comment on above: Order Comment: Urine , Random Result Comment: PT R EFUSED Performed By: #### L 500.2900, L400.0100, L100.0200 #### [facility] [address] [place], [address] Nitrite Ql (U) Normal Negative [facility] Comment on above: Order Comment: Urine , Random Result Comment: PT R EFUSED Performed By: #### L 500.2900, L400.0100, L100.0200 #### [facility] [address] [place], [address] OCCULT BLOOD-UR Normal Negative [facility] Comment on above: Order Comment: Urine , Random Result Comment: PT R EFUSED Performed By: #### L 500.2900, L400.0100, L100.0200 #### [facility] [address] [place], [address] pH UR Normal 5.0 - 8.0 [facility] Comment on above: Order Comment: Urine , Random Result Comment: PT R EFUSED Performed By: #### L 500.2900, L400.0100, L100.0200 #### [facility] [address] [place], [address] PROT DIPSTX Normal Negative [facility] Comment on above: Order Comment: Urine , Random Result Comment: PT R EFUSED Performed By: #### L 500.2900, L400.0100, L100.0200 #### [facility] [address] [place], [address] SP.GR. DIPSTX Normal 1.002-1.030 [facility] Comment on above: Order Comment: Urine , Random Result Comment: PT R EFUSED Performed By: #### L 500.2900, L400.0100, L100.0200 #### [facility] [address] [place], [address] UR Preservative Normal [facility] Comment on above: Order Comment: Urine , Random Result Comment: PT R EFUSED Performed By: #### L 500.2900, L400.0100, L100.0200 #### [facility] [address] [place], [address] UROBILI Normal Normal [facility] Comment on above: Order Comment: Urine , Random Result Comment: PT R EFUSED Performed By: #### L 500.2900, L400.0100, L100.0200 #### [facility] [address] [place], [address] SCRN MAMM (CAD)W/HOOD BILATo n 06-17-2024 SCRN MAMM (CAD)W/HOOD BILAT [facility] Imaging Services [address] [place] [address] SCRN MAMM (CAD)W/HOOD BILAT MR#: [id number] Acct: [id number] Name: JUNE ZUÑIGA Rep #: [id number] : 1965 F 59 From: Keagan Churchill MD PCP: Dr. Adrián Rojas MD Status: REG CLI Study: SCRN MAMM (CAD)W/HOOD BILAT Date of Exam: 06/01 03/24 Exam# [id number] Ordering Dr: Adrián Rojas MD [id number] MAMMOGRAPHY - BILATERAL SCREENING 3-D TOMOSYNTHESIS REASON FOR EXAM: Female, 59 years old. screening PERTINENT HISTORY: No significant family history. TECHNIQUE: 2-D mammograms and 3-D Tomosynthesis of the breast (s) were performed. CAD was performed. COMPARISON: 05/07/2023 FINDINGS: The breast composition is composed of scattered fibroglandular density. Scattered benign calcifications are seen. No dense spiculated masses or suspicious microcalcifications are identified. No architectural distortion is identified. There is no skin thickening or retraction. There has been no significant change since the prior study. BI/SCRN MAMM (CAD)W/HOOD BILAT IMPRESSION: No mammographic signs of malignancy. Routine yearly mammograms recommended. ASSESSMENT CATEGORY: BIRADS Category 1: Negative. A letter regarding these results will be sent to the patient by the facility within 30 days. FOLLOW UP RECOMMENDATION: Yearly follow up mammogram recommended. (A) Approximately 10% of breast cancers are not detected by mammography. A normal mammogram should not delay biopsy of a clinically suspicious abnormality. Electronically Signed: Keagan Churchill MD at 13:56 EDT , CC: Dr. Adrián Rojas MD Insurance Adjuster: Signed Normal [facility] CBC, Employeeon 02-09-2024 Absolute Lymph 1.92 X10 3/uL Normal 0.83-4.51 [facility] Comment on above: Result Comment: . Performed By: #### L 100.0200, L400.0100, L500.2900 #### [facility] [address] [place], [address] Absolute Neut 4.2 X10 3/uL Normal 2.0-7.7 [facility] Comment on above: Result Comment: . Performed By: #### L 100.0200, L400.0100, L500.2900 #### [facility] [address] [place], [address] BASO# 0.04 X10 3/uL Normal [facility] Comment on above: Result Comment: . Performed By: #### L 100.0200, L400.0100, L500.2900 #### [facility] [address] [place], [address] Basophils/100 WBC (Bld) 0.6 % Normal 0-1 [facility] Comment on above: Result Comment: . Performed By: #### L 100.0200, L400.0100, L500.2900 #### [facility] [address] [place], [address] EOS# 0.17 X10 3/uL Normal [facility] Comment on above: Result Comment: . Performed By: #### L 100.0200, L400.0100, L500.2900 #### [facility] [address] [place], [address] Eosinophils/100 WBC (Bld) 2.5 % Normal 0-5 [facility] Comment on above: Result Comment: . Performed By: #### L 100.0200, L400.0100, L500.2900 #### [facility] [address] [place], [address] Erythrocyte distribution width (RBC) [Ratio] 12.8 % Normal 11.6-14.6 [facility] Comment on above: Result Comment: . Performed By: #### L 100.0200, L400.0100, L500.2900 #### [facility] [address] [place], [address] Hematocrit (Bld) [Volume fraction] 40.0 % Normal 37-47 [facility] Comment on above: Result Comment: . Performed By: #### L 100.0200, L400.0100, L500.2900 #### [facility] [address] [place], [address] Hemoglobin (Bld) [Mass/Vol] 13.7 g/dL Normal 12.0-15.0 [facility] Comment on above: Result Comment: . Performed By: #### L 100.0200, L400.0100, L500.2900 #### [facility] [address] [place], [address] LYMPH# 1.92 X10 3/ul Normal [facility] Comment on above: Result Comment: . Performed By: #### L 100.0200, L400.0100, L500.2900 #### [facility] [address] [place], [address] Lymphocytes/100 WBC (Bld) 27.8 % Normal 19-41 [facility] Comment on above: Result Comment: . Performed By: #### L 100.0200, L400.0100, L500.2900 #### [facility] [address] [place], [address] MCH (RBC) [Entitic mass] 29.5 pg Normal 27.0-32.0 [facility] Comment on above: Result Comment: . Performed By: #### L 100.0200, L400.0100, L500.2900 #### [facility] [address] [place], [address] MCHC (RBC) [Mass/Vol] 34.3 g/dL Normal 32-36 [facility] Comment on above: Result Comment: . Performed By: #### L 100.0200, L400.0100, L500.2900 #### [facility] [address] [place], [address] MCV (RBC) [Entitic vol] 86.0 fL Normal 81-99 [facility] Comment on above: Result Comment: . Performed By: #### L 100.0200, L400.0100, L500.2900 #### [facility] [address] [place], [address] MONO # 0.52 X10 3/uL Normal [facility] Comment on above: Result Comment: . Performed By: #### L 100.0200, L400.0100, L500.2900 #### [facility] [address] [place], [address] Monocytes/100 WBC (Bld) 7.5 % Normal 0-10 [facility] Comment on above: Result Comment: . Performed By: #### L 100.0200, L400.0100, L500.2900 #### [facility] [address] [place], [address] Neutrophil # 4.22 X10 3/uL Normal 2.7-7.7 [facility] Comment on above: Result Comment: . Performed By: #### L 100.0200, L400.0100, L500.2900 #### [facility] [address] [place], [address] Neutrophils/100 WBC (Bld) 61.2 % Normal 47-70 [facility] Comment on above: Result Comment: . Performed By: #### L 100.0200, L400.0100, L500.2900 #### [facility] [address] [place], [address] NRBC # 0.00 10 3/uL Normal 0-5 [facility] Comment on above: Result Comment: . Performed By: #### L 100.0200, L400.0100, L500.2900 #### [facility] [address] [place], [address] Nucleated RBC (Bld) [#/Vol] 0 10*3/uL Normal 0-5 [facility] Comment on above: Result Comment: . Performed By: #### L 100.0200, L400.0100, L500.2900 #### [facility] [address] [place], [address] Platelet mean volume (Bld) [Entitic vol] 9.5 fL Normal 6.2-12.0 [facility] Comment on above: Result Comment: . Performed By: #### L 100.0200, L400.0100, L500.2900 #### [facility] [address] [place], [address] Platelets (Bld) [#/Vol] 268 10*3/uL Normal 150-450 [facility] Comment on above: Result Comment: . Performed By: #### L 100.0200, L400.0100, L500.2900 #### [facility] [address] [place], [address] RBC (Bld) [#/Vol] 4.65 10*6/uL Normal 4.2-5.4 [facility] Comment on above: Result Comment: . Performed By: #### L 100.0200, L400.0100, L500.2900 #### [facility] [address] [place], [address] RDW SD 39.8 fl Normal 35.1-43.9 [facility] Comment on above: Result Comment: . Performed By: #### L 100.0200, L400.0100, L500.2900 #### [facility] [address] [place], [address] WBC (Bld) [#/Vol] 6.9 10*3/uL Normal 4.4-11.0 [facility] Comment on above: Result Comment: . Performed By: #### L 100.0200, L400.0100, L500.2900 #### [facility] [address] [place], [address] Employee Profileon 4 Albumin [Mass/Vol] 4.0 g/dL Normal 3.2-5.0 [facility] Comment on above: Result Comment: . Performed By: #### L 100.0200, L400.0100, L500.2900 #### [facility] [address] [place], [address] Albumin/Globulin [Mass ratio] 1.1 {ratio} Normal 0.9-2.4 [facility] Comment on above: Result Comment: . Performed By: #### L 100.0200, L400.0100, L500.2900 #### [facility] [address] [place], [address] ALK P 113 U/L Normal 45-117 [facility] Comment on above: Result Comment: . Performed By: #### L 100.0200, L400.0100, L500.2900 #### [facility] [address] [place], [address] ALT [Catalytic activity/Vol] 53 U/L Normal 13-56 [facility] Comment on above: Result Comment: . Performed By: #### L 100.0200, L400.0100, L500.2900 #### [facility] [address] [place], [address] AST [Catalytic activity/Vol] 35 U/L Normal 15-37 [facility] Comment on above: Result Comment: . Performed By: #### L 100.0200, L400.0100, L500.2900 #### [facility] [address] [place], [address] Bilirubin [Mass/Vol] 0.90 mg/dL Normal 0.20-1.00 [facility] Comment on above: Result Comment: . For patients on eltrombopag therapy, use of Dimension [place] TBIL is not recommended. Performed By: #### L 100.0200, L400.0100, L500.2900 #### [facility] [address] [place], [address] Bilirubin.direct [Mass/Vol] 0.20 mg/dL Normal 0.00-0.30 [facility] Comment on above: Result Comment: . Performed By: #### L 100.0200, L400.0100, L500.2900 #### [facility] [address] [place], [address] BUN/CRE 19.9 RATIO Normal 10-20 [facility] Comment on above: Result Comment: . Performed By: #### L 100.0200, L400.0100, L500.2900 #### [facility] [address] [place], [address] CA,Total 9.4 mg/dL Normal 8.5-10.1 [facility] Comment on above: Result Comment: . Performed By: #### L 100.0200, L400.0100, L500.2900 #### [facility] [address] [place], [address] Chloride [Moles/Vol] 101 mmol/L Normal 98-107 [facility] Comment on above: Result Comment: . Performed By: #### L 100.0200, L400.0100, L500.2900 #### [facility] [address] [place], [address] CHOL:HDL 4.60 Normal [facility] Comment on above: Result Comment: . Performed By: #### L 100.0200, L400.0100, L500.2900 #### [facility] [address] [place], [address] Cholesterol [Mass/Vol] 204 mg/dL High 200 [facility] Comment on above: Result Comment: . <200 mg/dL Desirable 200-240 mg/dL Borderline >240 mg/dL High Risk Performed By: #### L 100.0200, L400.0100, L500.2900 #### [facility] [address] [place], [address] Cholesterol in HDL [Mass/Vol] 44 mg/dL Normal [facility] Comment on above: Result Comment: . The drugs N-Acetylcysteine and Metamizole may falsely depress this assay. Reference Range HDL <40 mg/dL Low HDL Cholesterol HDL >or= 60 mg/dL High HDL Cholesterol Performed By: #### L 100.0200, L400.0100, L500.2900 #### [facility] [address] [place], [address] Cholesterol in LDL [Mass/Vol] 137 mg/dL High 0-130 [facility] Comment on above: Result Comment: . Performed By: #### L 100.0200, L400.0100, L500.2900 #### [facility] [address] [place], [address] Cholesterol in VLDL [Mass/Vol] 23 mg/dL Normal 5-40 [facility] Comment on above: Result Comment: . Performed By: #### L 100.0200, L400.0100, L500.2900 #### [facility] [address] [place], [address] CO2 [Moles/Vol] 27.0 mmol/L Normal 21.0-32.0 [facility] Comment on above: Result Comment: . Performed By: #### L 100.0200, L400.0100, L500.2900 #### [facility] [address] [place], [address] Creatinine [Mass/Vol] 0.91 mg/dL Normal 0.55-1.02 [facility] Comment on above: Result Comment: . The validity of the calculated GFR GFRAA in patients over 70 years has not been determined. Clinical correlation is essential. Performed By: #### L 100.0200, L400.0100, L500.2900 #### [facility] [address] [place], [address] EST GFR - AA 82 mL/min Normal >60 [facility] Comment on above: Result Comment: . GFR Calc Performed By: #### L 100.0200, L400.0100, L500.2900 #### [facility] [address] [place], [address] GAP 9 Normal 5-15 [facility] Comment on above: Result Comment: . Performed By: #### L 100.0200, L400.0100, L500.2900 #### [facility] [address] [place], [address] GFR/1.73 sq M.predicted among non-blacks MDRD (S/P/Bld) [Vol rate/Area] 68 mL/min/{1.73_m2} Normal >60 [facility] Comment on above: Result Comment: . Non- GFR Calc Performed By: #### L 100.0200, L400.0100, L500.2900 #### [facility] [address] [place], [address] Globulin (S) [Mass/Vol] 3.8 g/dL Normal 2.2-4.2 [facility] Comment on above: Result Comment: . Performed By: #### L 100.0200, L400.0100, L500.2900 #### [facility] [address] [place], [address] Glucose [Mass/Vol] 130 mg/dL High 74-106 [facility] Comment on above: Result Comment: . Fasting Glucose result greater than or equal to 126 mg/dL suggests DIABETES MELLITUS per A.D.A. criteria. Performed By: #### L 100.0200, L400.0100, L500.2900 #### [facility] [address] [place], [address] LDH 243 U/L Normal 84-246 [facility] Comment on above: Result Comment: . Performed By: #### L 100.0200, L400.0100, L500.2900 #### [facility] [address] [place], [address] Phosphate [Mass/Vol] 3.1 mg/dL Normal 2.5-4.9 [facility] Comment on above: Result Comment: . Performed By: #### L 100.0200, L400.0100, L500.2900 #### [facility] [address] [place], [address] Potassium [Moles/Vol] 3.1 mmol/L Low 3.5-5.1 [facility] Comment on above: Result Comment: . Performed By: #### L 100.0200, L400.0100, L500.2900 #### [facility] [address] [place], [address] Sodium [Moles/Vol] 137 mmol/L Normal 136-145 [facility] Comment on above: Result Comment: . Performed By: #### L 100.0200, L400.0100, L500.2900 #### [facility] [address] [place], [address] T PROT 7.8 g/dL Normal 6.4-8.2 [facility] Comment on above: Result Comment: . Performed By: #### L 100.0200, L400.0100, L500.2900 #### [facility] [address] [place], [address] Triglyceride [Mass/Vol] 115 mg/dL Normal [facility] Comment on above: Result Comment: . The drugs N-Acetylcysteine and Metamizole may falsely depress this assay. Serum Triglycerides Reference Interval Normal <150 mg/dL Borderline high 150 - 199 mg/dL High 200 - 499 mg/dL Very High > or = 500 mg/dL Performed By: #### L 100.0200, L400.0100, L500.2900 #### [facility] [address] [place], [address] Urea nitrogen [Mass/Vol] 18 mg/dL Normal 7-18 [facility] Comment on above: Result Comment: . Performed By: #### L 100.0200, L400.0100, L500.2900 #### [facility] [address] [place], [address] URIC 7.2 mg/dL High 2.6-6.0 [facility] Comment on above: Result Comment: . The drugs N-Acetylcysteine and Metamizole may falsely depress this assay. Performed By: #### L 100.0200, L400.0100, L500.2900 #### [facility] [address] [place], [address] Urinalysis, Employeeon 02-08 BILIRUBIN URINE Normal Negative [facility] Comment on above: Order Comment: PT RE FUSED URINE Result Comment: . Performed By: #### L 100.0200, L400.0100, L500.2900 #### [facility] [address] [place], [address] Clarity (U) Normal Clear [facility] Comment on above: Order Comment: PT RE FUSED URINE Result Comment: . Performed By: #### L 100.0200, L400.0100, L500.2900 #### [facility] [address] [place], [address] Color (U) Normal Yellow [facility] Comment on above: Order Comment: PT RE FUSED URINE Result Comment: . Performed By: #### L 100.0200, L400.0100, L500.2900 #### [facility] [address] [place], [address] GLUCOSE, UR Normal Normal [facility] Comment on above: Order Comment: PT RE FUSED URINE Result Comment: . Performed By: #### L 100.0200, L400.0100, L500.2900 #### [facility] [address] [place], [address] KETONE UR Normal Negative [facility] Comment on above: Order Comment: PT RE FUSED URINE Result Comment: . Performed By: #### L 100.0200, L400.0100, L500.2900 #### [facility] [address] [place], [address] LEUK ESTERASE Normal Negative [facility] Comment on above: Order Comment: PT RE FUSED URINE Result Comment: . Performed By: #### L 100.0200, L400.0100, L500.2900 #### [facility] [address] [place], [address] Nitrite Ql (U) Normal Negative [facility] Comment on above: Order Comment: PT RE FUSED URINE Result Comment: . Performed By: #### L 100.0200, L400.0100, L500.2900 #### [facility] [address] [place], [address] OCCULT BLOOD-UR Normal Negative [facility] Comment on above: Order Comment: PT RE FUSED URINE Result Comment: . Performed By: #### L 100.0200, L400.0100, L500.2900 #### [facility] [address] [place], [address] pH UR Normal 5.0 - 8.0 [facility] Comment on above: Order Comment: PT RE FUSED URINE Result Comment: . Performed By: #### L 100.0200, L400.0100, L500.2900 #### [facility] [address] [place], [address] PROT DIPSTX Normal Negative [facility] Comment on above: Order Comment: PT RE FUSED URINE Result Comment: . Performed By: #### L 100.0200, L400.0100, L500.2900 #### [facility] [address] [place], [address] SP.GR. DIPSTX Normal 1.002-1.030 [facility] Comment on above: Order Comment: PT RE FUSED URINE Result Comment: . Performed By: #### L 100.0200, L400.0100, L500.2900 #### [facility] [address] [place], [address] UR Preservative Normal [facility] Comment on above: Order Comment: PT RE FUSED URINE Result Comment: . Performed By: #### L 100.0200, L400.0100, L500.2900 #### [facility] [address] [place], [address] UROBILI Normal Normal [facility] Comment on above: Order Comment: PT RE FUSED URINE Result Comment: . Performed By: #### L 100.0200, L400.0100, L500.2900 #### [facility] [address] [place], [address] No Panel InformationOrdered By: Adrián Rojas on 02-07-2023 Free Triiodothyronine (T3) pg/dL 2.8 pg/mL 2.18-3.98 [facility] Thyroid Stimulating Hormone (TSH) 2.05 uIU/mL 0.358-3.74 [facility] Whole blood hemoglobin A1c/t otal hemoglobin ratio (mass fraction)Ordered By: Adrián Rojas on 02-07-2023 HbA1c (Bld) [Mass fraction] 5.3 % 3.8-5.6 [facility] Comment on above: Normal < 5.7 % Predi abetic 5.7 - 6.4 % Diabetic >or= 6.5 % Please note range changes. Absolute lymphocyte countOrd ered By: HEALTH ASSESSMENT on 01-31-2023 Lymphocytes Auto (Unsp spec) [#/Vol] 1.44 10*3/uL 0.83-4.51 [facility] Absolute reticulocyte countO rdered By: HEALTH ASSESSMENT on 01-31-2023 Reticulocytes (Bld) [#/Vol] 0.00 10*3/uL 0-5 [facility] Basophil percentageOrdered B y: HEALTH ASSESSMENT on 01-31-2023 Basophil percentage 2.9 mg/dL 2.5-4.9 [facility] Bilirubin [Mass/Vol] 1.10 mg/dL 0.20-1.00 [facility] Comment on above: For patients on eltr ombopag therapy, use of Dimension [place] TBIL is not recommended. Chloride [Moles/Vol] 103 mmol/L 98-107 [facility] Cholesterol [Mass/Vol] 222 mg/dL <200 [facility] Comment on above: <200 mg/dL Desirable 200-240 mg/dL Borderline >240 mg/dL High Risk Glucose [Mass/Vol] 128 mg/dL 74-106 [facility] [facility] Comment on above: Fasting Glucose resu lt greater than or equal to 126 mg/dL suggests DIABETES MELLITUS per A.D.A. criteria. LDH [Catalytic activity/Vol] 183 U/L 84-246 [facility] Neutrophils (Bld) [#/Vol] 4.0 10*3/uL 2.0-7.7 [facility] Potassium [Moles/Vol] 3.4 mmol/L 3.5-5.1 [facility] Protein [Mass/Vol] 7.5 g/dL 6.4-8.2 [facility] Sodium [Moles/Vol] 140 mmol/L 136-145 [facility] Triglyceride [Mass/Vol] 128 mg/dL <199 [facility] Comment on above: The drugs N-Acetylcy steine and Metamizole may falsely depress this assay.Serum Triglycerides Reference Interval Normal <150 mg/dL Borderline high 150 - 199 mg/dL High 200 - 499 mg/dL Very High > or = 500 mg/dL WBC (Bld) [#/Vol] 6.4 10*3/uL 4.4-11.0 [facility] Blood erythrocytes count (nu mber/volume)Ordered By: HEALTH ASSESSMENT on 01-31-2023 RBC (Bld) [#/Vol] 4.95 10*6/uL 4.2-5.4 [facility] Blood hemoglobin measurement (mass/volume)Ordered By: HEALTH ASSESSMENT on 01-31-2023 Hemoglobin (Bld) [Mass/Vol] 14.4 g/dL 12.0-15.0 [facility] Blood platelet mean volumeOr dered By: HEALTH ASSESSMENT on 01-31-2023 Platelet mean volume (Bld) [Entitic vol] 9.4 fL 6.2-12.0 [facility] Determination of erythrocyte mean corpuscular volume (MCV)Ordered By: HEALTH ASSESSMENT on 01-31-2023 MCV (RBC) [Entitic vol] 87.7 fL 81-99 [facility] Direct bilirubinOrdered By: HEALTH ASSESSMENT on 01-31-2023 Bilirubin.direct [Mass/Vol] 0.24 mg/dL 0.00-0.30 [facility] Hematocrit Auto (Bld) [Volum e fraction]Ordered By: HEALTH ASSESSMENT on 01-31-2023 Hematocrit (Bld) [Volume fraction] 43.4 % 37-47 [facility] - Chemistry and C hemistry - challengeOrdered By: HEALTH ASSESSMENT on 01-31-2023 ALP [Catalytic activity/Vol] 107 U/L 45-117 [facility] ALT [Catalytic activity/Vol] 41 U/L 13-56 [facility] Cholesterol.total/Cho lesterol in HDL [Mass ratio] 4.60 {ratio} [facility] CO2 [Moles/Vol] 33.0 mmol/L 21.0-32.0 [facility] Globulin (S) [Mass/Vol] 3.7 g/dL 2.2-4.2 [facility] Urea nitrogen/Creatinine [Mass ratio] 22.4 mg/mg 10-20 [facility] - Hematology and Cell countsOrdered By: HEALTH ASSESSMENT on 01-31-2023 Erythrocyte distribution width (RBC) [Entitic vol] 41.4 fL 35.1-43.9 [facility] Erythrocyte distribution width (RBC) [Ratio] 12.9 % 11.6-14.6 [facility] MCH (RBC) [Entitic mass] 29.1 pg 27.0-32.0 [facility] Nucleated RBC/100 WBC (Bld) [Ratio] 0 % 0-5 [facility] MCHC Auto (RBC) [Mass/Vol]Or dered By: HEALTH ASSESSMENT on 01-31-2023 MCHC (RBC) [Mass/Vol] 33.2 g/dL 32-36 [facility] No Panel InformationOrdered By: HEALTH ASSESSMENT on 01-31-2023 Estimated GFR (MDRD) Amer 101 mL/min >60 [facility] Comment on above: GFR Calc Estimated GFR (MDRD) Non-Af Amer 84 mL/min >60 [facility] Comment on above: Non- GFR Calc Platelets bldOrdered By: HEA LT ASSESSMENT on 01-31-2023 Platelets (Bld) [#/Vol] 248 10*3/uL 150-450 [facility] Segmented neutrophils/100 WB C Auto (Bld)Ordered By: HEALTH ASSESSMENT on 01-31-2023 Segmented neutrophils/100 WBC (Bld) 62.0 % 47-70 [facility] Serum or plasma albumin villa urement (mass/volume)Ordered By: HEALTH ASSESSMENT on 01-31-2023 Albumin [Mass/Vol] 3.8 g/dL 3.2-5.0 [facility] Serum or plasma albumin/glob ulin mass ratioOrdered By: HEALTH ASSESSMENT on 01-31-2023 Albumin/Globulin [Mass ratio] 1.0 {ratio} 0.9-2.4 [facility] Serum or plasma calcium villa urement (mass/volume)Ordered By: HEALTH ASSESSMENT on 01-31-2023 Calcium [Mass/Vol] 9.2 mg/dL 8.5-10.1 [facility] Serum or plasma cholesterol in HDL measurement (mass/volume)Ordered By: HEALTH ASSESSMENT on 01-31-2023 Cholesterol in HDL [Mass/Vol] 48 mg/dL >40 [facility] Comment on above: The drugs N-Acetylcy steine and Metamizole may falsely depress this assay. Reference Range HDL <40 mg/dL Low HDL Cholesterol HDL >or= 60 mg/dL High HDL Cholesterol Serum or plasma cholesterol in VLDL measurement (mass/volume)Ordered By: HEALTH ASSESSMENT on 01-31-2023 Cholesterol in VLDL [Mass/Vol] 26 mg/dL 5-40 [facility] Serum or plasma creatinine m easurement (mass/volume)Ordered By: HEALTH ASSESSMENT on 01-31-2023 Creatinine [Mass/Vol] 0.76 mg/dL 0.55-1.02 [facility] Comment on above: The validity of the calculated GFR & GFRAA in patients over 70 years has not been determined. Clinical correlation is essential. Serum or plasma low density lipoprotein (LDL) cholesterol measurement (mass/volume)Ordered By: HEALTH ASSESSMENT on 01-31-2023 Cholesterol in LDL [Mass/Vol] 148 mg/dL 0-130 [facility] Serum or plasma urea nitroge n measurement (mass/volume)Ordered By: HEALTH ASSESSMENT on 01-31-2023 Urea nitrogen [Mass/Vol] 17 mg/dL 7-18 [facility] Serum or plasma uric acid me asurement (mass/volume)Ordered By: HEALTH ASSESSMENT on 01-31-2023 Urate [Mass/Vol] 7.5 mg/dL 2.6-6.0 [facility] Comment on above: The drugs N-Acetylcy steine and Metamizole may falsely depress this assay. Thin prep Papanicolaou smear with manual screeningOrdered By: HEALTH ASSESSMENT on 01-31-2023 Thin prep Papanicolaou smear with manual screening 33 U/L 15-37 [facility] Thin prep Papanicolaou smear with manual screening 4 5-15 [facility] - Chemistry and C hemistry - challengeon 06-21-2022 Free T4 [Mass/Vol] 1.21 ng/dL 0.76-1.46 [facility] Work Phone: No Panel Informationon 06-21 Free Triiodothyronine (T3) pg/dL 3.3 pg/mL 2.18-3.98 [facility] Work Phone: Thyroid Stimulating Hormone (TSH) 4.80 uIU/mL 0.358-3.74 [facility] Work Phone: Serum or plasma estrogen tito surement (mass/volume)on 06-21-2022 Estrogen [Mass/Vol] 66 pg/mL 40-244 [facility] Work Phone: Comment on above: Prepubertal < 40 Fem myrna Cycle: 1-10 Days 16 - 328 11-20 Days 34 - 501 21-30 Days 48 - 350 Post-Menopausal 40 - 244Performed at: [facility] [id number] Director: Marilyn Anderson MD, Phone: [phone] Serum or plasma uric acid me asurement (mass/volume)on 06-21-2022 Urate [Mass/Vol] 5.9 mg/dL 2.6-6.0 [facility] Work Phone: Comment on above: The drugs N-Acetylcy steine and Metamizole may falsely depress this assay. No Panel Informationon 06-13 Thyroid Stimulating Hormone (TSH) 5.79 uIU/mL 0.358-3.74 [facility] Work Phone: Office Visit: Spine Visit- N hortencia & low back painon 01-29-2017 Documentation of current medications (procedure) Done Invalid Interpretation Code [facility] Work Phone: Office Visit: Spine Visit- N hortencia & low back painon 01-22-2017 Documentation of current medications (procedure) Done Invalid Interpretation Code [facility] Work Phone: Office Visit: Spine Visit- N EWon 01-21-2017 Dietary management education, guidance, and counseling (procedure) yes Invalid Interpretation Code [facility] Work Phone: Tobacco smoking status UTIS Never Invalid Interpretation Code [facility] Work Phone: Tobacco smoking status UTIS Never smoker [facility] Work Phone: Tobacco use [facility] Never smoker Invalid Interpretation Code [facility] Work Phone: Vital Signs Date Time Vital Sign Value Performing Clinician Facility 04-24-2023 08:08-0400 Body height 168.[address] Adrián Rojas Work Phone: [facility] 04-24-2023 08:08-0400 Body mass index (BMI) [Ratio] 32.9 kg/m2 Dr. Adrián Rojas Work Phone: [facility] 04-24-2023 08:08-0400 Body temperature 98.4 [degF] Dr. Adrián Rojas Work Phone: [facility] 04-24-2023 08:08-0400 Body weight 93.[address] Adrián Rojas Work Phone: [facility] 04-24-2023 08:08-0400 Diastolic blood pressure 78 mm[Hg] Dr. Adrián Rojas Work Phone: [facility] 04-24-2023 08:08-0400 Heart rate 61 /min Dr. Adrián Rojas Work Phone: [facility] 04-24-2023 08:08-0400 Respiratory rate 14 /min Dr. Adrián Rojas Work Phone: [facility] 04-24-2023 08:08-0400 SaO2% (BldA) [Mass fraction] 95 % Dr. Adrián Rojas Work Phone: [facility] 04-24-2023 08:08-0400 Systolic blood pressure 135 mm[Hg] Dr. Adrián Rojas Work Phone: [facility] 01-21-2017 09:54-0400 BMI (Body Mass Index) 28.97 kg/m2 [facility] Work Phone: 01-21-2017 09:54-0400 Body weight 83.92 kg [facility] Work Phone: 01-21-2017 09:54-0400 Height 170.18 cm [facility] Work Phone: 01-21-2017 09:54-0400 Weight 83.92 kg Jillian [facility] [place] [facility] Work Phone: Encounters Encounter Date Encounter Type Care Provider Facility Start: 01-01-2025 End: 01-01-2025 Emergency department patient visit Adrián Rojas Facility:[facility] Start: 12-07-2024 ambulatory Health Risk Assessment Facility:[facility] Start: 06-17-2024 End: 06-17-2024 ambulatory Adrián Rojas Facility:[facility] Start: 02-09-2024 ambulatory Health Risk Assessment Facility:[facility] Start: 05-07-2023 End: 05-07-[address] Adrián Rojas Work Phone: [facility] Work Phone: Start: 05-07-2023 End: 05-07-[address] [facility] Start: 04-24-2023 End: 04-24-[address] Adrián Rojas Work Phone: [facility] Work Phone: Start: 02-07-2023 End: 02-07-[address] Adrián Rojas Work Phone: [facility] Work Phone: Start: 01-31-[address] Adrián renae Work Phone: [facility] Start: 06-21-2022 End: 06-21-2022 ambulatory [facility] Work Phone: Start: 06-21-2022 End: 06-21-2022 Patient encounter procedure [facility] Start: 06-13-2022 End: 06-13-2022 ambulatory [facility] Work Phone: Start: 06-13-2022 End: 06-13-2022 Patient encounter procedure [facility] Start: 04-12-2022 End: 04-12-2022 [facility] Date Procedure Procedure Detail Performing Clinician Start: 05-07-2023 Screening mammography Juliana Rojas Work Phone: Start: 02-07-2023 Plain x-ray of hand Dr. Adrián Rojas Work Phone: Start: 04-12-2022 Screening mammography Start: 01-29-2017 End: 01-30-2017 Chiropractic manipulation Jillian Mcdonald DC Work Phone: Start: 01-29-2017 End: 01-30-2017 Electric stimulation therapy Jillian B Dossi DC Work Phone: Start: 01-29-2017 End: 01-30-2017 Mechanical traction therapy Jillian Lockhart Angie i DC Work Phone: Start: 01-23-2017 End: 01-24-2017 Chiropractic manipulation Jillian Lockhart Dossi DC Work Phone: Start: 01-23-2017 End: 01-24-2017 Electric stimulation therapy Jillian Lockhart Dossi DC Work Phone: Start: 01-23-2017 End: 01-24-2017 Mechanical traction therapy Jillian Lockhart Angie i DC Work Phone: Start: 01-22-2017 End: 01-22-2017 Documentation of current medications Jillian Mcdonald WILDER Start: 01-22-2017 End: 01-22-2017 Chiropractic manipulation Lorie larkin Start: 01-22-2017 End: 01-22-2017 Electric stimulation therapy Lorie Arthur Start: 01-22-2017 End: 01-22-2017 Mechanical traction therapy Lorie alcazar Start: 01-21-2017 End: 01-21-2017 Dietary management education, guidance, and counseling Jillian Mcdonald WILDER Start: 01-21-2017 End: 01-22-2017 Chiropractic manipulation Jillian Lockhart Dossi DC Work Phone: Start: 01-21-2017 End: 01-22-2017 Electric stimulation therapy Jillian Lockhart Dossi DC Work Phone: Start: 01-21-2017 End: 01-22-2017 Mechanical traction therapy Jillian Lockhart Angie i [facility] Work Phone: Plan of Treatment Date Care Activity Detail Author Start: 01-29-2017 End: 01-29-2017 Appointment Appointment [facility] Work Phone: Start: 01-29-2017 End: 01-30-2017 Follow up Appt 3x/week Follow up Appt 3x/week [facility] Work Phone: Start: 01-23-2017 End: 01-23-2017 Appointment Appointment [facility] Work Phone: Start: 01-23-2017 End: 01-24-2017 Follow up Appt 3x/week Follow up Appt 3x/week [facility] Work Phone: Start: 01-22-2017 End: 01-22-2017 Appointment Appointment [facility] Work Phone: Start: 01-22-2017 End: 01-22-2017 Follow up Appt 3x/week Follow up Appt 3x/week [facility] Work Phone: Start: 01-21-2017 End: 01-22-2017 Follow up Appt 3x/week Follow up Appt 3x/week [facility] Work Phone: Immunizations Immunization Date Immunization Notes Care Provider [facility] 06-19-2022 influenza, injectabl e, quadrivalent, preservative free Dr. Adrián Rojas Work Phone: [facility] 06-19-2022 influenza, seasonal, injectable [facility] Work Phone: 06-18-2021 influenza, injectabl e, quadrivalent, preservative free Dr. Adrián Rojas Work Phone: [facility] 06-18-2021 influenza, seasonal, injectable [facility] Work Phone: 09-27-2020 Covid (Moderna) [facility] 08-30-2020 Covid (Moderna) [facility] 07-06-2020 influenza, injectabl e, quadrivalent, preservative free Dr. Adrián Rojas Work Phone: [facility] 07-06-2020 influenza, seasonal, injectable [facility] Work Phone: 07-14-2019 influenza, injectabl e, quadrivalent, preservative free Dr. Adrián Rojas Work Phone: [facility] 07-14-2019 influenza, seasonal, injectable [facility] Work Phone: 07-08-2018 influenza, injectabl e, quadrivalent, preservative free Dr. Adrián Rojas Work Phone: [facility] 07-08-2018 influenza, seasonal, injectable [facility] Work Phone: 06-25-2017 influenza, injectabl e, quadrivalent, preservative free Dr. Adrián Rojas Work Phone: [facility] 06-25-2017 influenza, seasonal, injectable [facility] Work Phone: 05-30-2016 influenza, injectabl e, quadrivalent, preservative free Dr. Adrián Rojas Work Phone: [facility] 05-30-2016 influenza, seasonal, injectable [facility] Work Phone: 06-28-2015 influenza, injectabl e, quadrivalent, preservative free Dr. Adrián Rojas Work Phone: [facility] 06-28-2015 influenza, seasonal, injectable [facility] Work Phone: 06-01-2014 influenza, injectabl e, quadrivalent, preservative free Dr. Adrián Rojas Work Phone: [facility] 06-01-2014 influenza, seasonal, injectable [facility] Work Phone: 07-21-2013 Influenza virus vaccine [facility] Payers Date Payer Category Payer Unknown [id number] 2024 Self-pay [id number] 2016 Unknown [id number] Unknown [id number] Unknown [id number] Unknown [id number] Unknown [id number] Social History Date Type Detail Facility Start: 01-21-2020 End: 04-24-2023 Tobacco smoking status NHIS Unknown if ever smoked [facility] Start: 12-28-2020 None [facility] Start: 12-28-2020 Homeless [facility] Start: 01-21-2020 Non-smoker [facility] Start: 1965 Sex Assigned At Female [facility] Goals Date Patient Goal Desired Activity /State Evaluation note Note Date & Type Note Facility Evaluation note No assessment information availa ble [facility] Work Phone: Evaluation note Note Date & Type Note Facility Evaluation note Diagnosis Onset Date Acute bacterial conjunctivitis acute [facility] Work Phone: Chief Complaint and Reason for Visit Chief Complaint SCREENING E ORDER Chief Complaint [facility] LABS AND XRAY- THUMB PAIN POSSIBLE PINK EYE RIGHT SCREENING Reason for Visit Acute bacterial conj unctivitis Family History No Family History Records Found Relationship Condition Age at Onset Recorded Date/T nela father Hypertension Unknown Coronary artery disease Unknown Cerebrovascular accident (CVA) Unknown sister Hypertension Unknown mother Hypertension Unknown Advance Directives No Advanced Directives Records Found Advance Directive Response Recorded Date/ Time Living Will No January 21, 2020 3 :59pm Power of Certified Medical Aide No January 21, 2020 3:59pm Summary Purpose Additional Source Comments Care Teams (unrecognized sec tion and content) Team Status: Active Member Role Status Dates Dr. Mateo Park MD Family Provider Active Dr. Adrián Rojas MD Primary Care Provider Active Team Status: Inactive Member Role Status Dates Dr. Adrián Rojas MD Primary Care Provider, Referring Provider Active BRIGIDO Perez Attending Provider Active Team Status: Active Member Role Status Dates Dr. Adrián Rojas MD Primary Care Provider Active Health Risk Assessment Attending Provider Active Team Status: Inactive Member Role Status Dates Dr. Adrián Rojas MD Primary Care Provi jada, Attending Provider, Referring Provider Active INFORMATION SOURCE (unrecogn ized section and content) DATE CREATED AUTHOR 01/06/2025 [facility] FOR RECORDS PERTAINING TO PATIENTS WHO ARE OR HAVE BEEN ENROLLED IN A CHEMICAL DEPENDENCY/SUBSTANCEABUSE PROGRAM, SOME INFORMATION MAY BE OMITTED. This clinical summary was aggregated from multiple sources. Caution should be exercised in using it in the provision of clinical care. This summary normalizes information from multiple sources, and as a consequence, information in this document may materially change the coding, format and clinical context of patient data. In addition, data may be omitted in some cases. CLINICAL DECISIONS SHOULD BE BASED ON THE PRIMARY CLINICAL RECORDS. [employer] [facility]. provides no warranty or guarantee of the accuracy or completeness of information in this document.
== END | disposition home or self-care (01) ==
LOC: OPBI 14:20
PROVIDERS: PCP Family Medicine; Referring Provider Family Medicine; Visit Provider Family Medicine
DX: Z12.31 Encounter for screening mammogram for malignant neoplasm of breast (principal); Z78.0 Asymptomatic menopausal state
CPT/HCPCS: 77063; 77067; 77080